=== PATIENT | male | born 1945 | race Caucasian/White ===

== ENCOUNTER 2018-01-14 13:18 | Observation (INO) | payer OTHER, BC ==
--- OUTSIDE RECORDS SUMMARY | 2018-01-14 13:21 | XMS REPORT | Continuity of Care Document ---
:1945 Author Organization Interface Problems Problem Status Onset Date Classification Date Comments Source Reported Medications Medication Details Route Status Patient Ordering Order Source Instructions Provider Date Allergies, Adverse Reactions, Alerts Substance Category Reaction Severity Reaction Status Date Comments Source type Reported Immunizations Immunization Date Given Site Status Last Updated Comments Source Results Order Results Value Reference Date Interpretation Comments Source Name Range Vital Signs Vital Sign Value Date Comments Source Encounters Location Location Encounter Encounter Reason Attending ADM DC Status Source Details Type Number For Provider Date Date Visit Outpatient [id number] TOÑA 11/[address] [facility] Outpatient [id number] TOÑA 11/[address] [facility] Procedures Procedure Code Date Perfomer Comments Source
--- OUTSIDE RECORDS SUMMARY | 2018-01-14 13:21 | XMS REPORT | Clinical Summary ---
:1945 Author Organization [facility] Address [address] [place] [address] Phone Care Team Providers Name Role Phone Unavailable Primary Care Provider Unavailable Allergies Active Allergy Reactions Severity Noted Date Comments Zolpidem 01/23/2016 "makes me loopy" Lisinopril 01/23/2016 Pancreatitis Current Medications Prescription Sig. Disp. Refills Start Date End Date Status glimepiride (AMARYL) Take 4 mg by mouth 2 Active 4 MG tablet (two) times daily. rosuvastatin Take 10 mg by mouth Active (CRESTOR) 10 MG daily. tablet DULoxetine Take 60 mg by mouth Active (CYMBALTA) 60 MG daily. capsule tamsulosin (FLOMAX) Take 0.4 mg by mouth Active 0.4 mg Cp24 24 hr daily. capsule metFORMIN Take 1,000 mg by Active (GLUCOPHAGE) 1000 MG mouth 2 (two) times tablet daily with breakfast and dinner. canagliflozin Take 100 mg by mouth Active (INVOKANA) 100 mg daily. tablet finasteride Take 5 mg by mouth Active (PROSCAR) 5 mg daily. tablet warfarin (COUMADIN) Take 6.5 mg by mouth Active 4 MG tablet daily . SITagliptin Take 100 mg by mouth Active (JANUVIA) 100 MG daily. tablet metoprolol Take 100 mg by mouth Active (TOPROL-XL) 100 MG daily. 24 hr tablet enoxaparin (LOVENOX) Inject subcutaneously Active 150 mg/mL injection every 12 (twelve) hours. metoprolol Take 50 mg by mouth 2 02/01/2016 01/31/2017 (LOPRESSOR) 50 MG (two) times daily. 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 Groin hematoma, sequela 03/20/2016 Wound infection 03/20/2016 Blood loss anemia 01/23/2016 S/P AVR (aortic valve replacement) CPAP (continuous positive airway pressure) dependence Obstructive sleep apnea on CPAP Hypertension Carotid artery disease (HCC) Overview: stent left carotid artery Diabetes mellitus type 2, noninsulin dependent (HCC) Encounters Date Type Specialty Care Team Description 04/28/2017 Hospital Encounter Radiology Collin Lundbergness of breath MD Jose 04/27/2017 Outside Orders Collin Lundberg Shortness of breath MD Jose (Primary Dx) 02/11/2017 Hospital Encounter Cardiology Kvng Goodson Aortic valve stenosis, unspecified etiology 02/11/2017 Office Visit Cardiology Kvng Goodson Aortic valve stenosis, unspecified etiology (Primary Dx);S/P AVR (aortic valve replacement);CPAP (continuous positive airway pressure) dependence;Obstructi ve sleep apnea on CPAP;Essential hypertension;Left-si ded carotid artery disease (HCC);Diabetes mellitus type 2, noninsulin dependent (HCC) 02/11/2017 Outside Orders Central Scheduling Kvng Goodson MD after 01/13/2017 Family History Medical History Relation Name Comments Cancer Brother Heart disease Brother Diabetes Father Heart disease Father Diabetes Mother Heart disease Mother Cancer Sister Heart disease Sister Relation Name Status Comments Brother Father Mother Sister Social History Tobacco Use Types Packs/Day Years Used Date Never Smoker Smokeless Tobacco: Former User Alcohol Use Drinks/Week oz/Week Comments No Sex Assigned at Date Recorded Not on file Last Filed Vital Signs Vital Sign Reading Time Taken Blood Pressure 142/66 02/11/2017 2:40 PM CDT Pulse 82 02/11/2017 2:40 PM CDT Temperature 36.7 C (98 F) 02/11/2017 7:13 AM CDT Respiratory Rate 18 02/11/2017 2:40 PM CDT Oxygen Saturation 95% 02/11/2017 2:40 PM CDT Inhaled Oxygen Concentration - - Weight 132.5 kg (292 lb) 02/11/2017 1:01 PM CDT Height 172.7 cm (5' 8") 02/11/2017 1:01 PM CDT Body Mass Index 44.4 02/11/2017 1:01 PM CDT Plan of Treatment Health Maintenance Due Date Last Done Comments INFLUENZA VACCINE 02/15/[address] Chest without IV Contrast (04/28/2017 10:57 AM) Specimen Performing Laboratory GE RIS Narrative FINAL REPORT CT scan of the chest. CLINICAL HISTORY: Short of breath on exertion. COMPARISON STUDY: January 28, 2016. TECHNIQUE: Contiguous helical slices were acquired through the thorax without the administration of contrast. This exam was performed according to our department dose optimization program which includes automated exposure control, adjustment of the mA and/or kV according to the patient's size and/or use of iterative reconstruction technique. FINDINGS: The mediastinum demonstrates small lymph nodes, extensive atherosclerosis and valvular calcification but no suspicious masses or adenopathy. Multiple bilateral calcified pleural plaques are seen, similar to previous. There is no pleural effusion. The visualized portions of the upper abdomen are unremarkable. The tracheobronchial tree is clear with no endobronchial lesions. The pulmonary parenchyma demonstrates scattered areas of atelectasis or fibrosis. Bone windows demonstrate degenerative changes. Poststernotomy changes are seen. IMPRESSION: 1. Extensive bilateral calcified pleural plaques. 2. Scattered areas of atelectasis or fibrosis. No suspicious pulmonary nodules. 3. Extensive atherosclerosis. Signed: Dennis Agosto MD Report Verified Date/Time:04/28/2017 11:35:10 Reading Location: [address] Radiology Reading Room Procedure Note Interface, External Ris In - 04/28/2017 11:37 AM STEEL DIE ENGRAVER FINAL REPORT CT scan of the chest. CLINICAL HISTORY: Short of breath on exertion. COMPARISON STUDY: January 28, 2016. TECHNIQUE: Contiguous helical slices were acquired through the thorax without the administration of contrast. This exam was performed according to our department dose optimization program which includes automated exposure control, adjustment of the mA and/or kV according to the patient's size and/or use of iterative reconstruction technique. FINDINGS: The mediastinum demonstrates small lymph nodes, extensive atherosclerosis and valvular calcification but no suspicious masses or adenopathy. Multiple bilateral calcified pleural plaques are seen, similar to previous. There is no pleural effusion. The visualized portions of the upper abdomen are unremarkable. The tracheobronchial tree is clear with no endobronchial lesions. The pulmonary parenchyma demonstrates scattered areas of atelectasis or fibrosis. Bone windows demonstrate degenerative changes. Poststernotomy changes are seen. IMPRESSION: 1. Extensive bilateral calcified pleural plaques. 2. Scattered areas of atelectasis or fibrosis. No suspicious pulmonary nodules. 3. Extensive atherosclerosis. Signed: Dennis Agosto MD Report Verified Date/Time: 04/28/2017 11:35:10 Reading Location: [address] Radiology Reading Room CARDIOGRAM REPORT - SCAN (02/12/2017 7:20 AM)Transesophageal echo (2016 12:55 PM) Component Value Ref Range Ejection Fraction Specimen Performing Laboratory [facility] MKCKESSON CPA Narrative Transesophageal Echocardiography Report (DAREK) Demographics Patient Name Meliza LO of Study 02/11/2017 NORMA [id number] Male Visit Number [id number] Room Number op Number Date of Birth1945Referring Physician MD Hamzah Kessler Age71 year(s)Casing Material Weigher Cheng Calderon Interpreting Dolly Evans, Physician Fellow JOAN Devine Procedure Type of Study DAREK procedure:TRANSESOPHAGEAL ECHO Indications:Aortic stenosis. Clinical History CAD,DMII,HTN,MAGED,(RT.) LEG DVT,S/P AVR(1992),STROKE,CHF,ASTHMA,ARTHRITIS Height: 68 inches Weight: 132.45 kg (292 lbs) BSA: 2.4 m^2 BMI: 44.4 kg/m^2 HR: 81 bpm BP: 134/63 mmHg Procedure Informed Consent DAREK procedure notes The patient was counseled and informed consent was obtained. Topical and intravenous anesthesia was administered. The esophagus was intubated without difficulty. The probe was passed and all standard echocardiographic views were obtained. IV saline contrast echo examination was performed with DAREK. The patient tolerated the procedure well. Moderate sedation by performing MD using 5 mg IV versed and 100 mcg IV fentanyl. . Summary A mechanical AVR is seen. It is well-seated. Mildly increased gradients across the AVR but overall normal function with DOI 0.39. Accel time 79ms, peak prosthetic aortic jet velociy < 3m/s, EOA 1.44cm^2. No paravalvular leak or AI is seen. The leaflets appear to move normally. Previous Study No prior studies available for comparison. Signature Findings Rhythm/BPVentricular paced rhythm during the exam. Left Ventricle Normal left ventricular chamber size. Normal wall thickness. Normal overall left ventricular systolic function. No apparent segmental wall motion abnormalities. Left AtriumLA is mildly dilated. LA appendage has simple (wind sock) morphology. No thrombus is seen. Right VentricleThe right ventricular chamber size and systolic function are within normal limits. Right Atrium RA size is normal. Atrial SeptumIV saline contrast injection was negative for a PFO (patent foramen ovale) at rest . Aortic Valve A mechanical AVR is seen. It is well-seated. Mildly increased gradients across the AVR but overall normal function with DOI 0.39. Accel time 79ms, peak prosthetic aortic jet velociy < 3m/s, EOA 1.44cm^2. No paravalvular leak or AI is seen. The leaflets appear to move normally. Mitral Valve Normal MV structure and function. Tricuspid ValveNormal TV structure. Trace TR with PASP 30- 35mmHg. Pulmonic Valve Normal PV structure and function. AortaNormal size of the aortic root and ascending aorta. Grade 2 plaque (extensive intimal thickening) in the descending thoracic aorta . PericardiumAn echo lucent space is noted consistent with prominent pericardial fat pad. IVC/SVC/PA/PV/PleuralBlunted systolic flow in the LUPV. Chambers/Structures Left Atrium LA Volume: 95.54 ml LA Vol. Index: 40 ml/m^2 Left Ventricle LVOT Diameter: 2.17 cm Shunts QS:84.14 ml Doppler/Quantitative Measurements Mitral Valve MV Peak E-Wave: 1.19 m/sMV Peak A-Wave: 0.78 m/s E/A Ratio : 1.52 Mean Velocity: 0.68 m/s Peak Gradient: 5.66 mmHg Mean Gradient: 2.17 mmHgDeceleration Time: 257.5 msec Area (continuity): 3.31 cm^2 MV VTI: 25.42 cm Aortic Valve Peak Velocity: 2.84 m/sMean Velocity: 1.94 m/s Peak Gradient: 32.28 mmHgMean Gradient: 17.52 mmHg AV Area (continuity): 1.44 cm^2 AV VTI: 58.25 cm AV DVI: 0.39 LVOT Peak Velocity: 1.02 m/s Peak Gradient: 4.19 mmHg Mean Velocity: 0.72 m/s Mean Gradient: 2.39 mmHg LVOT Diameter: 2.17 cmLVOT VTI: 22.75 cm LVOT Area: 3.7 cm^2 LVOT SV:84.1 ml LVOT CO: 6.81 l/min LVOT CI: 2.84 l/min/m^2 Tricuspid Valve TR Velocity: 2.85 m/s TR Gradient: 32.52 mmHg Procedure Note Interface, External Ris In - 02/11/2017 8:15 PM CDT Transesophageal Echocardiography Report (DAREK) Demographics Patient Name JONATHAN LO Date of Study 02/11/2017 NORMA Gender Male Visit Number [id number] Race Room Number op Number Date of 1945 Referring Physician MD Hamzah Kessler Age 71 year(s) Casing Material Weigher Cheng Calderon Interpreting Dolly Evans Physician Fellow JOAN Devine Procedure Type of Study DAREK procedure:TRANSESOPHAGEAL ECHO Indications:Aortic stenosis. Clinical History CAD,DMII,HTN,MAGED,(RT.) LEG DVT,S/P AVR(1992),STROKE,CHF,ASTHMA,ARTHRITIS Height: 68 inches Weight: 132.45 kg (292 lbs) BSA: 2.4 m^2 BMI: 44.4 kg/m^2 HR: 81 bpm BP: 134/63 mmHg Procedure Informed Consent DAREK procedure notes The patient was counseled and informed consent was obtained. Topical and intravenous anesthesia was administered. The esophagus was intubated without difficulty. The probe was passed and all standard echocardiographic views were obtained. IV saline contrast echo examination was performed with DAREK. The patient tolerated the procedure well. Moderate sedation by performing MD using 5 mg IV versed and 100 mcg IV fentanyl. . Summary A mechanical AVR is seen. It is well-seated. Mildly increased gradients across the AVR but overall normal function with DOI 0.39. Accel time 79ms, peak prosthetic aortic jet velociy < 3m/s, EOA 1.44cm^2. No paravalvular leak or AI is seen. The leaflets appear to move normally. Previous Study No prior studies available for comparison. Signature Findings Rhythm/BP Ventricular paced rhythm during the exam. Left Ventricle Normal left ventricular chamber size. Normal wall thickness. Normal overall left ventricular systolic function. No apparent segmental wall motion abnormalities. Left Atrium LA is mildly dilated. LA appendage has simple (wind sock) morphology. No thrombus is seen. Right Ventricle The right ventricular chamber size and systolic function are within normal limits. Right Atrium RA size is normal. Atrial Septum IV saline contrast injection was negative for a PFO (patent foramen ovale) at rest . Aortic Valve A mechanical AVR is seen. It is well-seated. Mildly increased gradients across the AVR but overall normal function with DOI 0.39. Accel time 79ms, peak prosthetic aortic jet velociy < 3m/s, EOA 1.44cm^2. No paravalvular leak or AI is seen. The leaflets appear to move normally. Mitral Valve Normal MV structure and function. Tricuspid Valve Normal TV structure. Trace TR with PASP 30-35mmHg. Pulmonic Valve Normal PV structure and function. Aorta Normal size of the aortic root and ascending aorta. Grade 2 plaque (extensive intimal thickening) in the descending thoracic aorta . Pericardium An echo lucent space is noted consistent with prominent pericardial fat pad. IVC/SVC/PA/PV/Pleural Blunted systolic flow in the LUPV. Chambers/Structures Left Atrium LA Volume: 95.54 ml LA Vol. Index: 40 ml/m^2 Left Ventricle LVOT Diameter: 2.17 cm Shunts QS:84.14 ml Doppler/Quantitative Measurements Mitral Valve MV Peak E-Wave: 1.19 m/s MV Peak A-Wave: 0.78 m/s E/A Ratio: 1.52 Mean Velocity: 0.68 m/s Peak Gradient: 5.66 mmHg Mean Gradient: 2.17 mmHg Deceleration Time: 257.5 msec Area (continuity): 3.31 cm^2 MV VTI: 25.42 cm Aortic Valve Peak Velocity: 2.84 m/s Mean Velocity: 1.94 m/s Peak Gradient: 32.28 mmHg Mean Gradient: 17.52 mmHg AV Area (continuity): 1.44 cm^2 AV VTI: 58.25 cm AV DVI: 0.39 LVOT Peak Velocity: 1.02 m/s Peak Gradient: 4.19 mmHg Mean Velocity: 0.72 m/s Mean Gradient: 2.39 mmHg LVOT Diameter: 2.17 cm LVOT VTI: 22.75 cm LVOT Area: 3.7 cm^2 LVOT SV:84.1 ml LVOT CO: 6.81 l/min LVOT CI: 2.84 l/min/m^2 Tricuspid Valve TR Velocity: 2.85 m/s TR Gradient: 32.52 mmHg after 01/13/2017
--- OUTSIDE RECORDS SUMMARY | 2018-01-14 13:21 | XMS REPORT ---
:1945 [facility] Address [address] [place] [address] Dr. Gimenez [address] [place] [id number] Care Team Providers Name Role Phone Unavailable Unavailable Unavailable Problems This patient has no known problems. Allergies, Adverse Reactions, Alerts This patient has no known allergies or adverse reactions. Medications This patient has no known medications. Results Test Description Test Time Test Comments Text Results Atomic Results Result Comments CT, CHEST, WITHOUT CONTRAST 2017-04-28 11:35:[address] scan of the chest. [...] demonstrate degenerative changes. Poststernotomy changes are seen. IMPRESSION:1. Extensive bilateral calcified pleural plaques.2. Scattered areas of atelectasis or fibrosis. No suspicious pulmonary nodules.3. Extensive atherosclerosis. Signed: Herlinda Agosto Verified Date/Time: 04/28/2017 11:35:10 Reading Location: [address] Radiology Reading Room
--- NOTE | 2018-01-14 14:05 | RAD REPORT ---
EXAM DESCRIPTION: RAD - Chest Single View - 01/14/2018 1:59 pm CLINICAL HISTORY: DYSPNEA Chest pain. COMPARISON: Chest Pa And Lat (2 Views) dated 10/15/2017; Abdomen 1 View (KUB) dated 04/01/2017; Chest Pa And Lat (2 Views) dated 02/16/2017; Chest Single View dated 01/22/2016 FINDINGS: Portable technique limits examination quality. Calcified pleural plaques are present bilaterally compatible with previous asbestos exposure. The rox gs are clear of acute infiltrate. The heart is upper limit normal in size with sternotomy wires prese nt. No displaced fractures. IMPRESSION: No acute intrathoracic process suspected. Bilateral calcified pleural plaquing compatible with prior asbestos exposure.
[2018-01-14 14:22] LABS: Absolute Lymphocytes (CBC) 1.5 K/uL (0.7-4.9); Absolute Monocytes 0.7 K/uL (0.1-1.3); Absolute Neutrophil 8.2 K/uL (1.8-8.0); Basophils % 1.5 % (0-1.3); Hematocrit 30.1 % (39.6-49.0); Lymphocytes % 13.8 % (15.3-44.8); MCH 31.3 pg (27.0-35.0); MCV 91.4 fL (80-100); MPV 9.6 fL (7.6-11.3); Monocytes % 6.5 % (3.3-12.3)
[2018-01-14 14:32] LABS: Protime INR 2.34
[2018-01-14 14:43] LABS: Potassium 4.4 mmol/L (3.5-5.1)
--- NOTE | 2018-01-14 15:18 | ER ---
Nurse's Notes [facility] Name: Jonathan Lo Age: 72 yrs Sex: Male : 1945 Arrival Date: 01/14/2018 Time: 13:22 Bed 13 Private MD: Diagnosis: Dyspnea, unspecified;Anemia;Unspecified combined systolic (congestive) and diastolic (congestive) heart failure Presentation: 01/14 13:22 Presenting complaint: Patient states: He had a colonoscopy done a few days ago, and he aj1 lost a lot of blood because they had to cut out a lot of polyps. He called his doctor's office today because he was feeling short of breath on exertion. weakness and fatigue and they advised him to come to the emergency room to have his blood count drawn. Patient appears pale. Transition of care: patient was not received from another setting of care. Onset of symptoms was January 09, 2018. Risk Assessment: Do you want to hurt yourself or someone else? Patient reports no desire to harm self or others. Initial Sepsis Screen: Does the patient meet any 2 criteria? HR > 90 bpm. No. Patient's initial sepsis screen is negative. Does the patient have a suspected source of infection? No. Patient's initial sepsis screen is negative. Care prior to arrival: None. 13:22 Method Of Arrival: Wheelchair aj1 13:22 Acuity: BOYD 2 aj1 Triage Assessment: 13:29 General: Appears in no apparent distress. uncomfortable, Behavior is calm, cooperative, aj1 appropriate for age. Pain: Denies pain. Neuro: Level of Consciousness is awake, alert, obeys commands. Cardiovascular: Reports chest pain with exertion Patient's skin is warm and dry. Respiratory: Reports shortness of breath on exertion Onset: The symptoms/episode began/occurred suddenly, the patient reports symptoms have resolved. Historical: - Allergies: 13:29 Aspirin; aj1 13:29 Lisinopril; aj1 13:29 zolpidem tartrate; aj1 - Home Meds: 13:29 tamsulosin 0.4 mg Oral cp24 1 cap once daily [Active]; Januvia 100 mg oral tab 1 tab aj1 once daily [Active]; Toprol XL 100 mg Oral Tb24 1 tab once daily [Active]; Crestor 10 mg Oral tab 1 tab once daily [Active]; Cymbalta 60 mg oral cpDR 1 cap once daily [Active]; Glucophage 1,000 mg Oral tab 1 tab 2 times per day [Active]; glimepiride 4 mg Oral tab 1 tab twice a day [Active]; finasteride 5 mg Oral tab 1 tab once daily [Active]; Coumadin 6.5 mg Oral tab 1 tab once daily [Active]; - PMHx: 13:29 CAD; Diabetes - NIDDM; High Cholesterol; Hypertension; neuropathy; aj1 - Immunization history:: Flu vaccine is not up to date. - Social history:: Smoking status: Patient/guardian denies using tobacco. - Ebola Screening: : Patient denies travel to an Ebola-affected area in the 21 days before illness onset. - Family history:: not pertinent. - Hospitalizations: : No recent hospitalization is reported. Screenin:57 Abuse screen: Denies threats or abuse. Nutritional screening: No deficits noted. tw2 Tuberculosis screening: No symptoms or risk factors identified. Fall Risk None identified. Assessment: 13:35 General: Appears in no apparent distress. obese, Behavior is calm, cooperative, tw2 appropriate for age. Pain: Denies pain. Neuro: Level of Consciousness is awake, alert, obeys commands, Oriented to person, place, time, situation. Cardiovascular: Heart tones S1 S2 Capillary refill < 3 seconds Rhythm is sinus rhythm. Respiratory: Reports shortness of breath at rest on exertion Airway is patent Respiratory effort is even, unlabored, Respiratory pattern is regular, symmetrical, Breath sounds are clear bilaterally. GI: Abdomen is round distended, obese, Bowel sounds present X 4 quads. : No signs and/or symptoms were reported regarding the genitourinary system. EENT: No signs and/or symptoms were reported regarding the EENT system. EENT: No signs and/or symptoms were reported regarding the EENT system. Derm: No signs and/or symptoms reported regarding the dermatologic system. Skin is pale. Musculoskeletal: Range of motion: intact in all extremities. 14:35 Reassessment: Patient appears in no apparent distress at this time. No changes from tw2 previously documented assessment. Patient and/or family updated on plan of care and expected duration. Pain level reassessed. Patient is alert, oriented x 3, equal unlabored respirations, skin warm/dry/pink. 15:35 Reassessment: Patient appears in no apparent distress at this time. No changes from tw2 previously documented assessment. Patient and/or family updated on plan of care and expected duration. Pain level reassessed. Patient is alert, oriented x 3, equal unlabored respirations, skin warm/dry/pink. 16:07 Reassessment: Patient appears in no apparent distress at this time. No changes from tw2 previously documented assessment. Patient and/or family updated on plan of care and expected duration. Pain level reassessed. Patient is alert, oriented x 3, equal unlabored respirations, skin warm/dry/pink. Vital Signs: 13:29 BP 166 / 71; Pulse 115; Resp 24; Temp 97.2(TE); Pulse Ox 95% on R/A; Weight 127.01 kg aj1 (R); Height 5 ft. 8 in. (172.72 cm) (R); Pain 0/10; 14:43 BP 123 / 57; Pulse 94; Resp 19; Pulse Ox 96% on 2 lpm NC; tw2 15:30 BP 122 / 58; Pulse 91; Resp 17; Pulse Ox 95% on R/A; tw2 16:12 BP 125 / 70; Pulse 91; Resp 18; Pulse Ox 98% on 2 lpm NC; Pain 0/10; em 13:29 Body Mass Index 42.57 (127.01 kg, 172.72 cm) aj1 14:43 pt sat 91%RA, pt placed on 2 L will continue to monitor tw2 ED Course: 13:22 Patient arrived in ED. aj1 13:25 Triage completed. aj1 13:29 Arm band placed on Patient placed in an exam room. aj1 13:31 Zachery Joseph MD is Attending Physician. rn 13:33 Regina Tomlin RN is Primary Nurse. tw2 13:55 Missed attempt(s): 22 gauge in right antecubital area. Bleeding controlled, band aid tw2 applied, catheter tip intact. Missed attempt(s): 22 gauge in left antecubital area. Bleeding controlled, band aid applied, catheter tip intact. 13:56 Bed in low position. Call light in reach. monitor worker on. Pulse ox on. NIBP on. tw2 13:58 X-ray completed. Portable x-ray completed in exam room. Patient tolerated procedure ka well. 13:58 EKG done, by technical translator. reviewed by Zachery Joseph MD. 3 13:59 XRAY Chest (1 view) In Process Unspecified. EDMS 14:10 Initial lab(s) drawn, by me, sent to lab. Inserted saline lock: 20 gauge in right in vd2 left hand, using aseptic technique. Blood collected. 15:17 Darek Rosales MD is Hospitalizing Provider. rn 16:10 Report given to JOSE A Tipton. tw2 16:20 No provider procedures requiring assistance completed. Patient admitted, IV remains in em place. Administered Medications: 15:25 Drug: Lasix 20 mg Route: IVP; Site: left hand; tw2 16:03 Follow up: Response: No adverse reaction tw2 Outcome: 15:18 Decision to Hospitalize by Provider. rn 16:42 Admitted to Tele accompanied by nurse, via wheelchair, room 221, with oxygen, with em chart, Report called to VALENTIN Becker 16:42 Condition: good 16:42 Instructed on the need for admit, Demonstrated understanding of instructions. 16:43 Patient left the ED. em Signatures: Dispatcher [employer] EDLiliana Francisco, RN RN aj1 Saeed Shields [employer] em Zacehry Joseph MD MD rn Dahse, Anasatcia 2 Connie Hernández Tara, RN RN tw2 Shavon Tamez 3
--- NOTE | 2018-01-14 15:18 | EDPHYS ---
Physician Documentation [facility] Name: Jonathan Lo Age: 72 yrs Sex: Male : 1945 Arrival Date: 01/14/2018 Time: 13:22 Bed 13 Private MD: ED Physician Zachery Joseph HPI: 01/14 14:27 This 72 yrs old Male presents to ER via Wheelchair with complaints of rn Shortness Of Breath. 14:27 The patient has shortness of breath at rest, with light activity. Onset: The rn symptoms/episode began/occurred 1 week(s) ago. Duration: The symptoms are intermittent. The patient's shortness of breath is aggravated by exertion, light activity, talking, walking. Severity of symptoms: At their worst the symptoms were moderate in the emergency department the symptoms are unchanged. The patient has not experienced similar symptoms in the past. Reports had colonoscopy a little more than a week ago, had several polyps removed, was taking lovenox and now coumadin, bled bright red blood for 3 days, no longer bleeding for last 3 days, + sob and dizzy with exertion, feels weak. No fever/cough/chest pain.No abd pain.. Historical: - Allergies: 13:29 Aspirin; aj1 13:29 Lisinopril; aj1 13:29 zolpidem tartrate; aj1 - Home Meds: 13:29 tamsulosin 0.4 mg Oral cp24 1 cap once daily [Active]; Januvia 100 mg oral tab 1 tab aj1 once daily [Active]; Toprol XL 100 mg Oral Tb24 1 tab once daily [Active]; Crestor 10 mg Oral tab 1 tab once daily [Active]; Cymbalta 60 mg oral cpDR 1 cap once daily [Active]; Glucophage 1,000 mg Oral tab 1 tab 2 times per day [Active]; glimepiride 4 mg Oral tab 1 tab twice a day [Active]; finasteride 5 mg Oral tab 1 tab once daily [Active]; Coumadin 6.5 mg Oral tab 1 tab once daily [Active]; - PMHx: 13:29 CAD; Diabetes - NIDDM; High Cholesterol; Hypertension; neuropathy; aj1 - Immunization history:: Flu vaccine is not up to date. - Social history:: Smoking status: Patient/guardian denies using tobacco. - Ebola Screening: : Patient denies travel to an Ebola-affected area in the 21 days before illness onset. - Family history:: not pertinent. - Hospitalizations: : No recent hospitalization is reported. ROS: 14:27 Constitutional: Negative for fever, chills, and weight loss, Eyes: Negative for injury, rn pain, redness, and discharge, Neck: Negative for injury, pain, and swelling, Cardiovascular: Negative for chest pain, palpitations, and edema, Respiratory: Negative for cough, wheezing, and pleuritic chest pain, Abdomen/GI: Negative for abdominal pain, nausea, vomiting, diarrhea, and constipation, MS/Extremity: Negative for injury and deformity, Skin: Negative for injury, rash, and discoloration, Neuro: Negative for headache, numbness, tingling, and seizure. Exam: 14:27 Constitutional: This is a well developed, well nourished patient who is awake, alert, rn mild tachypnea Head/Face: Normocephalic, atraumatic. Eyes: slightly pale conjunctivae Cardiovascular: tachycardic, regular, no murmur Respiratory: + mild tachypnea, no retractions, speaks 3-4 word sentences Abdomen/GI: Soft, non-tender, with normal bowel sounds. No distension or tympany. No guarding or rebound. No evidence of tenderness throughout. MS/ Extremity: Pulses equal, no cyanosis. Neurovascular intact. Full, normal range of motion. Equal circumference. 1+ pedal edema Neuro: Awake and alert, GCS 15, oriented to person, place, time, and situation. Cranial nerves II-XII grossly intact. Motor strength 5/5 in all extremities. Sensory grossly intact. Cerebellar exam normal. Normal gait. Vital Signs: 13:29 BP 166 / 71; Pulse 115; Resp 24; Temp 97.2(TE); Pulse Ox 95% on R/A; Weight 127.01 kg aj1 (R); Height 5 ft. 8 in. (172.72 cm) (R); Pain 0/10; 14:43 BP 123 / 57; Pulse 94; Resp 19; Pulse Ox 96% on 2 lpm NC; tw2 15:30 BP 122 / 58; Pulse 91; Resp 17; Pulse Ox 95% on R/A; tw2 16:12 BP 125 / 70; Pulse 91; Resp 18; Pulse Ox 98% on 2 lpm NC; Pain 0/10; em 13:29 Body Mass Index 42.57 (127.01 kg, 172.72 cm) aj1 14:43 pt sat 91%RA, pt placed on 2 L will continue to monitor tw2 MDM: 13:31 Patient medically screened. rn 15:16 Differential diagnosis: Anemia CHF exacerbation, Myocardial Infarction pneumonia, rn pulmonary edema. Data reviewed: vital signs, nurses notes, lab test result(s), EKG, radiologic studies, plain films, and as a result, I will admit patient. Counseling: I had a detailed discussion with the patient and/or guardian regarding: the historical points, exam findings, and any diagnostic results supporting the discharge/admit diagnosis, lab results, radiology results, the need for further work-up and treatment in the hospital. Response to treatment: the patient's symptoms have mildly improved after treatment, and as a result, I will admit patient. Admission orders: after a detailed discussion of the patient's condition and case, the admit orders are written by me. ED course: Spoke with Tres Rosales, will admit for CHF, elevated troponin, and monitoring of anemia, no longer bleeding, will place consult for Dr. Bernardo. . 15:23 ED course: Dr. Bernardo paged, got his office, who took message and would relay rn information, notified \T\ 1523. 01/14 13:40 Order name: CBC with Diff; Complete Time: 15:02 rn 01/14 13:40 Order name: Basic Metabolic Panel; Complete Time: 15:02 rn 01/14 13:40 Order name: Protime (+inr); Complete Time: 15:02 rn 01/14 13:40 Order name: Ptt, Activated; Complete Time: 15:02 rn 01/14 13:40 Order name: NT PRO-BNP; Complete Time: 15:02 rn 01/14 13:40 Order name: Troponin (emerg Dept Use Only); Complete Time: 15:02 rn 01/14 13:40 Order name: EKG; Complete Time: 13:41 rn 01/14 13:40 Order name: EKG - Nurse/Tech; Complete Time: 13:55 rn 01/14 13:40 Order name: Type And Screen; Complete Time: 15:15 rn 01/14 13:40 Order name: XRAY Chest (1 view); Complete Time: 14:16 rn 01/14 14:54 Order name: ABO/RH no charge; Complete Time: 15:02 EDMS Administered Medications: 15:25 Drug: Lasix 20 mg Route: IVP; Site: left hand; tw2 16:03 Follow up: Response: No adverse reaction tw2 Disposition: 01/14/18 15:18 Hospitalization ordered by Darek Rosales for Inpatient Admission. Preliminary diagnosis are Dyspnea, unspecified, Anemia, Unspecified combined systolic (congestive) and diastolic (congestive) heart failure. - Bed requested for Telemetry/MedSurg (Inpatient). - Status is Inpatient Admission. em - Condition is Stable. - Problem is an ongoing problem. - Symptoms have improved. UTI on Admission? No Signatures: Dispatcher [employer] EDMS Liliana South RN VALENTIN ajNamita Dominguez RN VALENTIN kl Saeed Shields, TOW MOTOR MECHANIC TOW MOTOR MECHANIC Zachery Sahni MD MD rn Wise, Tara, RN RN tw2 Tamara Kerns Corrections: (The following items were deleted from the chart) 16:00 15:18 Hospitalization Ordered by A Bobby ALMODOVAR for Inpatient Admission. Preliminary eb diagnosis is Dyspnea, unspecified; Anemia; Unspecified combined systolic (congestive) and diastolic (congestive) heart failure. Bed requested for Telemetry/MedSurg (Inpatient). Status is Inpatient Admission. Condition is Stable. Problem is an ongoing problem. Symptoms have improved. UTI on Admission? No. rn 16:07 16:00 01/14/2018 15:18 Hospitalization Ordered by A Bobby ALMODOVAR for Inpatient Admission. kl Preliminary diagnosis is Dyspnea, unspecified; Anemia; Unspecified combined systolic (congestive) and diastolic (congestive) heart failure. Bed requested for Telemetry/MedSurg (Inpatient). Status is Inpatient Admission. Condition is Stable. Problem is an ongoing problem. Symptoms have improved. UTI on Admission? No. eb 16:43 16:07 01/14/2018 15:18 Hospitalization Ordered by A Bobby ALMODOVAR for Inpatient Admission. em Preliminary diagnosis is Dyspnea, unspecified; Anemia; Unspecified combined systolic (congestive) and diastolic (congestive) heart failure. Bed requested for Telemetry/MedSurg (Inpatient). Status is Inpatient Admission. Condition is Stable. Problem is an ongoing problem. Symptoms have improved. UTI on Admission? No. kl
[2018-01-14] MEDS ORDERED: FUROSEMIDE 20 MG/ 2ML VIAL ONE (15:27)
--- NOTE | 2018-01-14 16:26 | EKG ---
Test Date: 2018-01-14 Test Time: 13:54:51 Hogshead Inspector: JOSEPH MEASUREMENT RESULTS: Intervals: Rate: 105 NM: 192 QRSD: 114 QT: 346 QTc: 457 [place]: P: 88 NM: 192 QRS: 11 T: 115 INTERPRETIVE STATEMENTS: Sinus tachycardia Incomplete left bundle branch block T wave abnormality, consider lateral ischemia Abnormal ECG Compared to ECG 01/22/2016 06:10:08 Left bundle-branch block now present T-wave abnormality now present Ventricular premature complex(es) no longer present Myocardial infarct finding no longer present ST (T wave) deviation no longer present Possible ischemia still present Electronically Signed On 01-14-18 16:25:50 CDT by Charlie Bernardo
[2018-01-14] MEDS ORDERED: ONDANSETRON 4 MG/2 ML VIAL IV PRN (16:30)
[2018-01-14] MEDS ORDERED: ALBUTEROL 2.5 MG/3 ML NEB SOL NEB PRN (16:30)
[2018-01-14] MEDS ORDERED: IPRATROPIUM BROM 0.5MG/2.5ML NEB PRN (16:30)
[2018-01-14] MEDS ORDERED: ACETAMINOPHEN 500 MG TAB PO PRN (16:30)
[2018-01-14] MEDS ORDERED: FUROSEMIDE 20 MG/ 2ML VIAL IV SCH (17:00)
[2018-01-14 17:07] VITALS: BMI 42.5
[2018-01-14] MEDS: WARFARIN SODIUM 7.5 MG TAB PO ONE ×2 (21:55→22:35)
[2018-01-15 05:55] LABS: Absolute Lymphocytes (CBC) 1.8 K/uL (0.7-4.9); Absolute Monocytes 0.9 K/uL (0.1-1.3); Basophils % 1.4 % (0-1.3); Eosinophils % 5.9 % (0-4.4); Hematocrit 27.2 % (39.6-49.0); Lymphocytes % 21.7 % (15.3-44.8); MCH 30.3 pg (27.0-35.0); MPV 9.6 fL (7.6-11.3); Monocytes % 11.2 % (3.3-12.3); RBC Red Blood Cell Count 2.99 M/uL (4.33-5.43)
[2018-01-15 06:00] LABS: Albumin 3.3 g/dL (3.4-5.0); Bilirubin Total 0.4 mg/dL (0.2-1.0); Potassium 4.2 mmol/L (3.5-5.1); Protein, Total 6.7 g/dL (6.4-8.2)
[2018-01-15 06:01] LABS: Thyroid Stimulating Hormone 3.8 uIU/mL (0.360-3.740)
--- NOTE | 2018-01-15 07:33 | HP ---
Date of Admission: 01/14/2018 Chief Complaint: Shortness of breath and chest pain. History Of Present Illness: A 72-year-old male patient who had colonoscopy done by Dr. Aguirre a week before last, and he had some rectal bleeding after colonoscopy which has stopped now, and has not had any bleeding in almost a week or so. He is back on his anticoagulant medication, which is wa rfarin which is being managed by director inpatient headache program, Dr. Bernardo. Last 2-3 days, he is having shortness of breath with any minimum day-to-day activity including just getting out of bed and going to the bathr oom he gets short of breath, walking across the room get short of breath, and he has a pulse oximeter at home. He checks his oxygen saturation and it drops down into range of 70-75 when he gets short o f breath and then once he sits down and rests, it gets better, his shortness of breath goes away. De nies any fever, chills, nausea, vomiting. No expectoration. No hemoptysis. No bleeding per rectum in last few days. The patient also has noted that in last 2-3 days along with shortness of breath, anna atkinson gets chest tightness all across the upper chest and some pain in his shoulders and arms. He called his director inpatient headache program's office today with these complaints and he was advised to come to emergency room. After he was evaluated in the ER, he was admitted to the hospital and I saw him this evening. His w reyes was present with him at bedside. Allergies: ALLERGIC TO LISINOPRIL AND ZOLPIDEM. Medications: He takes Crestor 10 mg daily; Cymbalta 60 mg daily; finasteride 5 mg daily; furosemide 40 mg every day as needed for leg swelling; glimepiride 4 mg p.o. 2 times a day; Januvia 100 mg p.o. daily with breakfast; metformin 1000 mg p.o. 2 times a day; metoprolol succinate 100 mg p.o. daily; m ultivitamin daily; Rapaflo 8 mg p.o. daily; warfarin, which he takes it every day, but dose being man aged by Dr. Bernardo. Review of Systems: Cardiovascular: As mentioned above. GI: As mentioned above. All other systems reviewed and negative. Family History: Significant for bladder cancer, stomach cancer, diabetes mellitus, stroke. Social History: Prior history of smoking, not at present time. Use of alcohol, negative. Past Surgical History: Carotid artery endarterectomy and then carotid artery stent in 2004, aortic v alve replacement in 1992 due to aortic wall stenosis, knee replacement, carpal tunnel surgery, left s houlder tendon repair, arthroscopic knee surgery. Past Medical History: Mixed hyperlipidemia, hypertension, sleep apnea, nonalcoholic fatty liver dise ase, type 2 diabetes mellitus, chronic anticoagulation therapy, chronic diastolic congestive heart fa ilure, prosthetic heart valve, carotid artery stenosis. Physical Examination: Vital Signs: This evening when I saw him, his temperature 97.3, pulse 96, respiratory rate 20, blood pressure 139/66, oxygen saturation 95%. Height 5 feet 8 inches, weight 280 pounds. General: Awake, alert, oriented, not in distress. HEENT: Head atraumatic, normocephalic. Conjunctivae nonerythematous. Sclerae white. Mouth, no thr ush or edema noted. Ears/Nose, no mass, lesion, discharge noted. Neck: Supple. No JVD, lymph nodes, bruit, thyromegaly noted. Lungs: Bilateral good equal air entry. Clear to auscultation. No rhonchi. Presence of some fine r ales in lower lung youssef. Heart: Normal heart sounds, no murmur or gallop. Abdomen: Soft, bowel sounds normal. No guarding, rigidity, tenderness, mass, hepatosplenomegaly, di stention, or bruit noted. Extremities: Trace leg edema. No calf tenderness. Skin: No rash, ulcer, cellulitis. Lymphatics: No lymph node enlargement in neck, supraclavicular, infraclavicular region. Neuro: No focal neurological deficit. Chest: Unremarkable. External Genitalia: Deferred. Rectal: Deferred. Laboratory Data: White count 10.9, hemoglobin 10.3, platelets 327. INR 2.34. Sodium 141, potassium 4.4, chloride 104, bicarb 26, BUN 19, creatinine 1.10, glucose 178. Troponin 0.07 on the first set, second set 0.17. ProBNP 351. Chest x-ray, no acute intrathoracic process noted. 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 Electrocardiogram, sinus tachycardia, i ncomplete left bundle-branch block. Impression: 1.Congestive heart failure, chronic, diastolic, with acute exacerbation. 2.Chest pain. 3.Chronic anticoagulation therapy. 4.Prosthetic aortic valve. 5.Hypertension. 6.Type 2 diabetes mellitus. 7.Mixed hyperlipidemia. 8.Coronary artery disease. 9.Carotid artery stenosis. 10.Nonalcoholic fatty liver disease. 11.Anemia. Plan: We will admit the patient to hospital for further evaluation and management of this problem. The patient is appropriate for inpatient and is expected to spend 2 midnights in hospital. Home medi cations will be continued per order. Consult Cardiology. Get echo with Doppler. We will go ahead a nd get a CT scan of the chest per PE protocol done tomorrow morning. Continue anticoagulation therap y that he takes, and we will go ahead and give IV Lasix. Monitor electrolytes and blood count. Card iac enzymes will be done tomorrow morning. Details and plan of treatment discussed with him. ELIAS/MARGARITA Voice ID: [id number]
[2018-01-15] MEDS ORDERED: SITAGLIPTIN PHOS 100 MG TAB PO SCH (09:00)
[2018-01-15] MEDS ORDERED: ROSUVASTATIN 10 MG TAB PO SCH (09:00)
[2018-01-15] MEDS ORDERED: DULOXETINE 20 MG CAP PO SCH (09:00)
[2018-01-15] MEDS ORDERED: DULOXETINE 30 MG CAP PO SCH (09:00)
[2018-01-15] MEDS ORDERED: NEOMYCIN PO SCH (09:00)
[2018-01-15] MEDS ORDERED: TAMSULOSIN 0.4 MG SR CAP PO SCH (09:00)
[2018-01-15] MEDS ORDERED: FUROSEMIDE 40 MG/4 ML VIAL IV SCH (09:00)
[2018-01-15] MEDS ORDERED: FUROSEMIDE 20 MG/ 2ML VIAL IV SCH (09:00)
[2018-01-15] MEDS ORDERED: [UNRECOGNIZED DRUG - OTHER] PO SCH (09:00)
[2018-01-15] MEDS ORDERED: METOPROLOL XL 50 MG TAB PO SCH (09:00)
[2018-01-15] MEDS ORDERED: POLYMYXIN B SULF PO SCH (09:00)
--- NOTE | 2018-01-15 10:02 | RAD REPORT ---
EXAM DESCRIPTION: CT - Chest For Pe Angio - 01/15/2018 9:36 am CLINICAL HISTORY: Chest pain. dyspnea, rule out PE COMPARISON: THORAX W CONTRAST dated 03/09/2013; Chest Single View dated 01/14/2018 TECHNIQUE: CT angiogram of the pulmonary arteries was performed with MIP. All CT scans are performed using dose optimization technique as appropriate and may include automated exposure control or mA/KV adjustment according to patient size. FINDINGS: No evidence of pulmonary thromboembolism. No acute aortic finding demonstrated. The lungs are mildly emphysematous but clear of acute infiltrate. Calcified pleural plaquing bilaterally compatible with prior asbestos exposure. Several mildly promin ent lymph nodes are seen in the mediastinum and hilar regions, not of pathologic size or appearance. No concerning bony finding. IMPRESSION: No evidence of pulmonary thromboembolism. 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 No acute pulmonary abnormality.
[2018-01-15 13:00] VITALS: BP 142/65; TEMP 97
[2018-01-15 13:31] VITALS: O2SAT 93
--- NOTE | 2018-01-15 16:45 | P.SSS ---
Patient History Date of Service: 01/15/18 Primary Care Provider: Dr Rosales Reason for admission: Chest Pain and SOB History of Present Illness: A 72-year-old male patient who had colonoscopy done by Dr. Aguirre a week before last, and he had some rectal bleeding after colonoscopy which has stopped now, and has not had any bleeding in almost a week or so. He is back on his anticoagulant medication, which is warfarin which is being managed by promotional marketing agent, Dr. Bernardo. Last 2-3 days, he is having shortness of breath with any minimum day-to-day activity including just getting out of bed and going to the bathroom he gets short of breath, walking across the room get short of breath, and he has a pulse oximeter at home. He checks his oxygen saturation and it drops down into range of 70-75 when he gets short of breath and then once he sits down and rests, it gets better, his shortness of breath goes away. Denies any fever, chills, nausea, vomiting. No expectoration. No hemoptysis. No bleeding per rectum in last few days. The patient also has noted that in last 2-3 days along with shortness of breath, he gets chest tightness all across the upper chest and some pain in his shoulders and arms. He called his promotional marketing agent's office today with these complaints and he was advised to come to emergency room. After he was evaluated in the ER, he was admitted to the hospital and I saw him this evening. His was present with him at bedside. Allergies aspirin Allergy (Verified 01/22/16 15:59) Itching/Hives/Rash lisinopril Allergy (Verified 01/22/16 15:59) Itching/Hives/Rash zolpidem tartrate [From Ambien] Allergy (Verified 01/22/16 15:59) Itching/Hives/Rash Home Medications: Duloxetine [Cymbalta *] 60 mg PO DAILY 01/14/18 Finasteride [Proscar*] 5 mg PO DAILY AT SUPPER 01/14/18 Glimepiride [Amaryl] 4 mg PO DAILY 01/14/18 Glimepiride [Amaryl] 4 mg PO DAILY AT SUPPER 01/14/18 Metformin HCl [Glucophage*] 1,000 mg PO DAILY AT SUPPER 01/14/18 Metformin HCl [Glucophage*] 1,000 mg PO DAILY WITH BREAKFAST 01/14/18 Metoprolol Succinate [Toprol Xl*] 100 mg PO DAILY 01/14/18 Neomycin/Polymyxin B Sulf/Hc [Tnppaogu-Qxansbwse-Jr Ear Susp] 4 drops PO QID Rosuvastatin [Crestor*] 1 tab PO DAILY 01/14/18 Sitagliptin Phosphate [Januvia*] 100 mg PO DAILY 01/14/18 Tamsulosin HCl 0.4 mg PO DAILY 01/14/18 Warfarin Sodium [Coumadin*] 6.5 mg PO DAILY 5 PM 01/14/18 Ferrous Sulfate 325 mg PO DAILY #30 tablet 01/15/18 - Past Medical/Surgical History Has patient received pneumonia vaccine in the past: Yes Diabetic: Yes -: CVA 2003 -: ASBESTOSIS -: KIDNEY STONES WITH LITHOTRIPSY X2 .2014 -: HTN -: DM NIDDM -: BPH -: PANCREATITIS 2011 -: high cholesterol -: LEFT KNEE REPLACEMENT 2010 -: LEFT SHOULDER TORN TENDON REPAIR -: LEFT SIDE CAROTID ENDOCARDECTOMY W/STENT 2010 -: AORTIC VALVE REPLACEMENT 1992 - Family History Father -: Heart disease, Hypertension, Cancer Notes: MULTIPLE MYELOMA MOTHERR -: Heart disease, Hypertension, Diabetes Notes: CHF - Social History Smoking Status: Former smoker Alcohol use: Yes CD- Drugs: No Caffeine use: Yes Place of Residence: Home Review of Systems 10-point ROS is otherwise unremarkable Physical Examination - Vital Signs Temperature: 97.0 F Blood Pressure: 142/65 Pulse: 93 Respirations: 16 Pulse Ox (%): 92 - Physical Exam General: Alert, In no apparent distress HEENT: Atraumatic, PERRLA, Mucous membr. moist/pink, EOMI, Sclerae nonicteric Neck: Supple, 2+ carotid pulse no bruit, No LAD, Without JVD or thyroid abnormality Respiratory: Clear to auscultation bilaterally, Normal air movement Cardiovascular: Regular rate/rhythm, Normal S1 S2 Gastrointestinal: Normal bowel sounds, No tenderness Musculoskeletal: No tenderness Integumentary: No rashes Neurological: Normal gait, Normal speech, Normal strength at 5/5 x4 extr, Normal tone, Normal affect Lymphatics: No axilla or inguinal lymphadenopathy - Diagnosis (Problem(s)) (1) SOB (shortness of breath) Status: Resolved (2) Anemia Onset Date: 01/15/18 Status: Acute Qualifiers: Anemia type: iron deficiency Iron deficiency anemia type: chronic blood loss Qualified Code(s): D50.0 - Iron deficiency anemia secondary to blood loss (chronic) (3) Aortic valve prosthesis present Onset Date: 01/15/18 Status: Chronic (4) CAD (coronary artery disease) Onset Date: 01/15/18 Status: Chronic Qualifiers: Coronary Disease-Associated Artery/Lesion type: [place] artery [place] vs. transplanted heart: [place] heart Associated angina: without angina Qualified Code(s): I25.10 - Atherosclerotic heart disease of [place] coronary artery without angina pectoris (5) CHF (congestive heart failure) Onset Date: 01/15/18 Status: Chronic Qualifiers: Heart failure type: unspecified Heart failure chronicity: chronic Qualified Code(s): I50.9 - Heart failure, unspecified (6) Chest pain Onset Date: 01/15/18 Status: Chronic Qualifiers: Chest pain type: other chest pain Qualified Code(s): R07.89 - Other chest pain; R07.8 - Other chest pain (7) Chronic anticoagulation Onset Date: 01/15/18 Status: Chronic (8) Diabetes Onset Date: 01/15/18 Status: Chronic Qualifiers: Diabetes mellitus type: type 2 Diabetes mellitus eligibility consultant insulin use: with intermediate use Diabetes mellitus complication status: without complication Qualified Code(s): E11.9 - Type 2 diabetes mellitus without complications; Z79.4 - data analytics chief scientist (current) use of insulin (9) HTN (hypertension) Onset Date: 01/15/18 Status: Chronic Qualifiers: Hypertension type: essential hypertension Qualified Code(s): I10 - Essential (primary) hypertension (10) Hyperlipidemia Status: Chronic Qualifiers: Hyperlipidemia type: mixed hyperlipidemia Qualified Code(s): E78.2 - Mixed hyperlipidemia Treatment Summary: Overall during the hospital stay patient remained stable Patient was initially admitted to the hospital after having shortness of breath , chest pain and generalized weakness after he had his colonoscopy. Patient was found to be anemic and had profuse bleeding after his colonoscopy due to polypectomy. Bleeding did subside and patient was restarted on his anticoagulant is aortic valve replacement. Patient then was admitted to the hospital for ACS rule out. Cardiology was consulted. Recommendations were appreciated. Her with cardiology patient symptom is most likely secondary to his anemia secondary to blood loss after colonoscopy. Per cardiology recommended the patient have iron supplements and be discharged home under stable condition and asked to follow up with cardiology in about 1-2 weeks post discharge. Patient's chest pain shortness of breath did resolve while here in the hospital. Patient's symptomatology Wound is most likely secondary to chronic blood loss anemia secondary to polypectomy. Patient was asked to take iron 325 b.i.d. until he sees his primary care provider. The patient's generalized weakness also got better while here in the hospital. Patient demonstrated understanding of the disease process and the reason for his acute symptoms and thus was discharged home under stable condition after he had marked improvement was able to ambulate and tolerate his diet well. Patient was educated extensively on diet that is high in iron and lifestyle modification as well. - Disposition Disposition: ROUTINE DISCHARGE Condition: GOOD Diet: Regular Activity: Ad jeff
[2018-01-15] MEDS ORDERED: WARFARIN SODIUM 2.5 MG TAB PO SCH (17:00)
[2018-01-15] MEDS ORDERED: WARFARIN SODIUM 4 MG TAB PO SCH (17:00)
[2018-01-15] MEDS ORDERED: WARFARIN SODIUM 6 MG TAB PO SCH (17:00)
[2018-01-15] MEDS ORDERED: FINASTERIDE 5 MG TAB PO SCH (17:00)
--- NOTE | 2018-01-16 05:53 | CON ---
Date of Consultation: 01/15/2018 History Of Present Illness: Mr. Lo is a 72, very well known to me from office visits and [facility] admissions. He has an extensive past medical history of coronary artery disease, status post CABG. He has a history of aortic valve replacement that is mechanical. He has hypertension, diabetes, ob esity, and dyslipidemia. He recently had a colonoscopy and had, I believe, 9 polyps removed and had significant bleeding. Mr. Lo had been bridged with Lovenox while holding the Coumadin for his co lonoscopy. His last hemoglobin is 9. But since his blood loss, he felt dyspnea on exertion and some chest pain, some nausea, diaphoresis, and shortness of breath, came in and was found to have mild CH F exacerbation on chest x-ray, elevated troponin. By the time I saw him, he had his symptoms resolve d after IV Lasix. The patient is not anemic enough for transfusions. Past Medical History: As stated above. Allergies: NONE. Review of Systems: Negative. Social History: Negative for tobacco, alcohol, or drugs. Family History: Positive for heart disease. Physical Examination: Vital Signs: When I saw him, his vital signs were stable, he was afebrile. HEENT: Negative. Neck: Supple without any bruit, lymphadenopathy, JVD, or thyromegaly. Chest: Revealed rales bilaterally. Cardiac: Revealed a regular rhythm and rate with a crisp aortic valve sound and no aortic regurgitat ion. No gallops. No rubs. Abdomen: Obese but benign. Extremities: Revealed 1+ edema. Diagnostic Data: Consistent with anemia, elevated CPK, troponin, and BNP. Impression And Plan: 1.Acute exacerbation of chronic diastolic congestive heart failure secondary to anemia. 2.Coronary artery disease, stable. 3.Hypertension. 4.Diabetes. 5.Dyslipidemia. 6.Cerebrovascular disease. 7.Recent gastrointestinal bleed from colonoscopy and polyp removal while he is on anticoagulation. Mr. Lo is now back on his Coumadin. I agree with his present regimen. Another echocardiogram is pending. I would continue diuresis. If his symptoms do not improve, I will still consider the ledezma sfusion. He does not need another cardiac workup other than the echo at this point. If he does go h ome, I will see him in the office in the near future. He will need his CBC followed. PT and INR are pending in the near future. DAPHNEY/MARGARITA Voice ID: [id number] Report ID: [id number]
--- NOTE | 2018-01-19 11:35 | ECHO ---
HEIGHT: 5 ft 8 in WEIGHT: 280 lb 0 oz DATE OF STUDY: 01/15/[address]: Zachery Joseph JR, MD 2-DIMENSIONAL: YES M.MODE: YES DOPPLER: YES COLOR FLOW: YES TDS: NO PORTABLE: NO DEFINITY: NO BUBBLE STUDY: NO DIAGNOSIS: DYSPNEA CARDIAC HISTORY: CATHERIZATION: NO SURGERY: YES PROSTHETIC VALVE: AORTIC VALVE REPLACEMENT PACEMAKER: NO MEASUREMENTS (cm) DIASTOLIC (NORMALS) SYSTOLIC (NORMALS) IVSd 1.2 (0.6-1.2) LA Diam (1.9-4.0) LVEF 53% LVIDd 3.4 (3.5-5.7) LVIDs 2.5 (2.0-3.5) %FS 26% LVPWd 1.4 (0.6-1.2) Ao Diam 2.8 (2.0-3.7) 2 DIMENSIONAL ASSESSMENT: RIGHT ATRIUM: NORAML LEFT ATRIUM: NORMAL RIGHT VENTRICLE: NORMAL LEFT VENTRICLE: NORMAL TRICUSPID VALVE: NORMAL MITRAL VALVE: NORMAL PULMONIC VALVE: NORMAL AORTIC VALVE: STATUS POST AORTIC VALVE REPLACEMENT PERICARDIAL EFFUSION: NONE AORTIC ROOT: NORMAL. LEFT VENTRICULAR WALL MOTION: NORMAL. DOPPLER/COLOR FLOW: MILD TRICUSPID REGURGITATION. COMMENTS: MILD TRICUSPID REGURGITATION. NORMAL PROSTHETIC MECHANICAL AORTIC VALVE REPLACEMENT. NORMAL EJECTION FRACTION. NO EFFUSION. TECHNOLOGIST: ZEINAB ALARCON
== END 2018-01-15 15:46 | disposition home or self-care (01) ==
LOC: ER 13:18 → ERHOLD 15:19 → INTOOBSV 15:19 → 2ND 16:26
PROVIDERS: ADMIT Family Medicine; ATTEND Internal Medicine
DX: I11.0 Hypertensive heart disease with heart failure (principal); I50.33 Acute on chronic diastolic (congestive) heart failure; D50.0 Iron deficiency anemia secondary to blood loss (chronic); E11.9 Type 2 diabetes mellitus without complications; E78.2 Mixed hyperlipidemia; I25.10 Atherosclerotic heart disease of native coronary artery without angina pectoris; Z86.73 Personal history of transient ischemic attack (TIA), and cerebral infarction without residual deficits; Z95.2 Presence of prosthetic heart valve; Z85.51 Personal history of malignant neoplasm of bladder; Z85.028 Personal history of other malignant neoplasm of stomach; Z79.01 Long term (current) use of anticoagulants; Z95.1 Presence of aortocoronary bypass graft; E66.9 Obesity, unspecified; Z68.41 Body mass index [BMI] 40.0-44.9, adult; Z88.6 Allergy status to analgesic agent; Z96.652 Presence of left artificial knee joint
CPT/HCPCS: 36415; 71045; 71275; 80048; 80053; 83735; 83880 ×2; 84439; 84443; 84484 ×3; 85025 ×2; 85610; 85730; 86850; 86900; 86901; 93005; 93306; 96374; 99285; G0378 ×2; J1940; Q9967

== ENCOUNTER 2018-05-25 18:48 | Inpatient (IN) | payer OTHER, BC ==
--- OUTSIDE RECORDS SUMMARY | 2018-05-25 19:20 | XMS REPORT | Clinical Summary ---
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 rosuvastatin Take 10 mg by mouth 0 Active (CRESTOR) 10 MG daily. tablet DULoxetine Take 60 mg by mouth 0 Active (CYMBALTA) 60 MG daily. capsule tamsulosin (FLOMAX) Take 0.4 mg by mouth 0 Active 0.4 mg Cp24 24 hr daily. capsule metFORMIN Take 1,000 mg by 0 Active (GLUCOPHAGE) 1000 MG mouth 2 (two) times tablet daily with breakfast and dinner. canagliflozin Take 100 mg by mouth 0 Active (INVOKANA) 100 mg daily. tablet finasteride Take 5 mg by mouth 0 Active (PROSCAR) 5 mg daily. tablet warfarin (COUMADIN) Take 6.5 mg by mouth 0 Active 4 MG tablet daily . SITagliptin Take 100 mg by mouth 0 Active (JANUVIA) 100 MG daily. tablet metoprolol Take 100 mg by mouth 0 Active (TOPROL-XL) 100 MG daily. 24 hr tablet enoxaparin (LOVENOX) Inject 0 Active 150 mg/mL injection subcutaneously every 12 (twelve) hours. 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 Last Filed Vital Signs Not on file Plan of Treatment Health Maintenance Due Date Last Done Comments INFLUENZA VACCINE 02/15/2018 Results Not on fileafter 05/24/2017 Insurance Payer Benefit Plan / Subscriber ID Type Phone Address Group MEDICARE MEDICARE A B xxxxxxxxxx Medicare BLUE CROSS/BLUE BCBS INDEMNITY [place] xxxxxxxxxxxx PPO [phone] [address] [place] [address] Advance Directives For more information, please contact:[address] [phone] Code Status Date Activated Date Inactivated Comments Full Code 02/11/2017 2:21 PM 02/11/2017 2:26 PM This code status was determined by: Patient Full Code 03/20/2016 4:44 PM 03/26/2016 7:35 PM This code status was determined by: Patient
--- OUTSIDE RECORDS SUMMARY | 2018-05-25 19:20 | XMS REPORT ---
:1945 Author Organization [facility] Address [address] [place] [address] Dr. Gimenez [address] [place] [id number] Care Team Providers Name Role Phone Unavailable [...] pulmonary nodules.3. Extensive atherosclerosis. Signed: Herlinda Agosto MDReport Verified Date/Time: 04/28/2017 11:35:10 Reading Location: [address] Radiology Reading Room
--- OUTSIDE RECORDS SUMMARY | 2018-05-25 19:20 | XMS REPORT | Continuity of Care Document ---
[...] Number For Provider Date Date Visit Outpatient [id number] TOÑA 11/19 [facility] Outpatient [id number] TOÑA 11/17 [facility] Procedures Procedure Code Date Perfomer Comments Source
[2018-05-25] MEDS ORDERED: MORPHINE 2 MG/ML SYR IV PRN (20:11)
[2018-05-25] MEDS ORDERED: ONDANSETRON 4 MG/2 ML VIAL IV PRN (20:11)
[2018-05-25] MEDS ORDERED: PANTOPRAZOLE 40 MG INJ IVP ONE (20:12)
[2018-05-25] MEDS ORDERED: SODIUM CHLORIDE 0.9% 10ML INJ IV PRN (20:12)
[2018-05-25] MEDS ORDERED: D50W 25 GM/50 ML SYRINGE IV PRN (20:13)
[2018-05-25] MEDS ORDERED: GLUCAGON 1 MG/VIAL IM PRN (20:13)
[2018-05-25 20:55] LABS: Protime INR 3.56
[2018-05-25] MEDS: INSULIN -REGULAR HUMAN 50 UNIT/0.5 ML ML SQ SCH (21:00)
[2018-05-25] MEDS ORDERED: NA CHLORIDE 0.9% 1,000 ML IV SCH (21:00)
[2018-05-25 21:02] LABS: Albumin 3.6 g/dL (3.4-5.0); Bilirubin Total 0.4 mg/dL (0.2-1.0); Potassium 4.3 mmol/L (3.5-5.1); Protein, Total 7.8 g/dL (6.4-8.2)
[2018-05-25] MEDS: MORPHINE 4 MG/ML SYR IV PRN (22:56)
[2018-05-25] MEDS: Ringers Lactate 1,000 ML IV SCH (23:10)
[2018-05-26 02:48] VITALS: BMI 19.9
--- NOTE | 2018-05-26 03:38 | HP ---
Date of Admission: 05/25/2018 Chief Complaint: Abdominal pain. History Of Present Illness: This is a 72-year-old male patient with history of pancreatitis in 2010, came into office today with his with 5 to 6 days' history of upper abdominal pain in the epigastric region associated with bloating. The pain has been intermittent. In last 2 to 3 weeks, he is trying to lose weight by reducing his oral intake but with this pain his appetite has been even little worse than usual. Denies any vomiting, diarrhea. Has some nausea. Denies any fever or chills. No cough. No constipation. No bleeding. No fall or injury. Denies any heartburn, indigestion. After he was evaluated at the office, a decision was made to admit him to the hospital with concerns about pancreatitis. Medications: He takes warfarin, Rapaflo 8 mg daily, multivitamin daily, metoprolol ER 50 mg daily, metformin 1000 mg 2 times a day, Januvia 100 mg p.o. daily, glimepiride 4 mg p.o. 2 times a day, furosemide 40 mg p.o. daily as needed for leg swelling, finasteride 5 mg p.o. daily, Cymbalta 60 mg p.o. daily , Crestor 10 mg p.o. daily. Allergies: TO LISINOPRIL CAUSING PANCREATITIS AND ZOLPIDEM CAUSING HALLUCINATIONS. Review of Systems: GI: As mentioned above. All other systems reviewed and negative. Family History: Significant for bladder cancer, stomach cancer, diabetes, stroke. Social History: Prior history of smoking, not at present time. Use of alcohol negative. Past Surgical History: Carotid artery endarterectomy and then carotid artery stent in 2004, aortic valve replacement in 1992 due to aortic valve stenosis. Had knee replacement, carpal tunnel syndrome surgery, left shoulder tendon repair, arthroscopic knee surgery. Past Medical History: Mixed hyperlipidemia, hypertension, sleep apnea, nonalcoholic fatty liver disease, type 2 diabetes mellitus, chronic anticoagulation therapy, chronic diastolic congestive heart failure, prosthetic heart valve, carotid artery stenosis. Physical Examination: Vital Signs: At office today, height 68 inches, weight 289 pounds, blood pressure 137/84, pulse 90, respiratory rate 16, temperature 98.1. General: Awake, alert, oriented, not in distress. HEENT: Head atraumatic, normocephalic. Conjunctivae nonerythematous. Sclerae white. Mouth, no thrush or edema noted. Ears/Nose, no mass, lesion, discharge noted. Neck: Supple. No JVD, lymph nodes, bruit, thyromegaly noted. Lungs: Bilateral good equal air entry. Clear to auscultation. No rhonchi. No rales. Heart: Normal heart sounds, no murmur or gallop. Abdomen: The patient has tenderness in upper half of abdomen. No rebound tenderness. Bowel sounds normoactive. Extremities: No leg edema. No calf tenderness. Skin: No rash, ulcer, cellulitis. Lymphatics: No lymph node enlargement in neck, supraclavicular, infraclavicular region. Neuro: No focal neurological deficit. Chest: Unremarkable. External Genitalia: Deferred. Rectal: Deferred. Laboratory Data: Sodium 139, potassium 4.3, chloride 104, bicarb 29, BUN 20, creatinine 1.13, glucose 136. Liver function tests are unremarkable. Amylase 110, lipase 2278. Procalcitonin less than 0.05. INR 3.56. Impression: 1. Acute pancreatitis. 2. Chronic anticoagulation therapy. 3. Hypertension. 4. Mixed hyperlipidemia. 5. Type 2 diabetes mellitus. 6. Nonalcoholic fatty liver disease. 7. Sleep apnea. 8. Chronic diastolic congestive heart failure. 9. Carotid artery stenosis. Plan: Admit the patient to hospital for further evaluation and management of this problem. The patient is appropriate for inpatient and is expected to spend 2 midnights in hospital. We will give him symptomatic treatment with pain medication, nausea medication. Tomorrow, we will go ahead and order CAT scan of the abdomen and if necessary we will consider ultrasound, get a lipid profile done in the morning. Give IV fluid with Ringer's lactate per order and I will see him tomorrow for followup. Home medications will be continued per order. If gallbladder ultrasound comes back okay and triglyceride comes back okay, then we will have to think about possibility of either viral infection or medication side effects and out of the different medication he takes, Januvia is one of the medication that we will have to discontinue. I will see him tomorrow for followup. ELIAS/MARGARITA Voice ID: [id number] [facility] MEDICAL CENTERZaida
[2018-05-26] MEDS: MORPHINE 4 MG/ML SYR IV PRN (03:57)
[2018-05-26 05:17] LABS: Urine Appearance CLEAR; Urine Bilirubin NEGATIVE (NEG); Urine Blood TRACE (NEG); Urine Color YELLOW; Urine Glucose NEGATIVE (NEG); Urine Protein NEGATIVE (NEG); Urine Specific Gravity 1.015 (1.005-1.030); Urine Urobilinogen 0.2 mg/dL (0.2-1.0); Urine pH 5.5 (5.0-7.0)
[2018-05-26 05:25] LABS: Absolute Lymphocytes (CBC) 1.6 K/uL (0.7-4.9); Absolute Monocytes 1.1 K/uL (0.1-1.3); Absolute Neutrophil 5.7 K/uL (1.8-8.0); Eosinophils % 3.2 % (0-4.4); Lymphocytes % 17.9 % (15.3-44.8); MPV 11.1 fL (7.6-11.3); Monocytes % 12.7 % (3.3-12.3); RBC Red Blood Cell Count 4.72 M/uL (4.33-5.43)
[2018-05-26 05:31] LABS: Urine Microscopic Reflex ORDER UMIC
[2018-05-26 05:32] LABS: Urine Bacteria <20 /HPF (NONE SEEN); Urine Culture Reflex Order NOT NEEDED; Urine RBC <5 /HPF (NONE SEEN)
[2018-05-26 06:46] LABS: Protime INR 3.32
[2018-05-26] MEDS: INSULIN -REGULAR HUMAN 50 UNIT/0.5 ML ML SQ SCH ×4 (07:30→21:45)
[2018-05-26] MEDS ORDERED: PNEUMOCOCCAL VACCINE 0.5 ML IMVAC ONE (08:00)
[2018-05-26] MEDS ORDERED: INFLUENZA VACCINE (for 3y+) 0.5 ML DOSE IMVAC ONE (08:00)
--- NOTE | 2018-05-26 09:14 | RAD REPORT ---
EXAM DESCRIPTION: CT - Abdomen Pelvis Wo Contrast - 05/26/2018 9:00 am CLINICAL HISTORY: Abdominal pain, pancreatitis COMPARISON: CT imaging January 15 TECHNIQUE: Axial [address] imaging of the abdomen and pelvis was performed without IV contrast. No IV contrast was given because of allergy, abnormal renal function, patient refusal or physician re quest. Oral contrast was given. All CT scans are performed using dose optimization technique as appropriate and may include automated exposure control or mA/KV adjustment according to patient size. FINDINGS: No acute findings in the lung bases. Patient has calcified pleural plaquing. No pericardia l thickening or effusion. Liver and spleen show no suspicious findings. No biliary tree dilatation. Gallbladder size is normal. Gallstones can be occult. Mild edema and stranding are present the peripancreatic fat around the body of the pancreas. No solid mass, cyst, abscess or pseudocyst. No hydronephrosis or suspicious renal mass. No significant adrenal finding. Isodense renal masses an d pyelonephritis cannot be excluded in the absence of IV contrast. The urinary bladder is without sig nificant finding. No dilated bowel loops or bowel wall thickening. No other inflammatory stranding. No free air or pneu matosis. No hernia, mass or bulky lymphadenopathy. No suspicious bony findings. IMPRESSION: Mild acute pancreatitis. No abscess, pseudocyst or other complicating factor. No gallbladder dilatation or biliary tree dilatation. Gallstones can be occult. Full assessment is limited is the absence of IV contrast.
--- NOTE | 2018-05-26 09:21 | RAD REPORT ---
EXAM DESCRIPTION: RAD - Chest Pa And Lat (2 Views) - 05/26/2018 9:08 am CLINICAL HISTORY: CHF, shortness of breath COMPARISON: January 14, 2018 TECHNIQUE: PA and lateral views of the chest were obtained. FINDINGS: The lungs are fibrotic. No focal mass or consolidation of the lung parenchyma seen. Patien t has dense calcified pleural plaquing not clearly different from prior imaging. Heart size upper normal for portable imaging. No vascular engorgement. Significant failure or volu me overload are not suspected. No pleural effusion or pneumothorax seen. No acute bony finding noted . No aortic abnormality. IMPRESSION: No significant failure or volume overload identifiable. Chest is not significantly different from comparison.
--- NOTE | 2018-05-26 09:22 | RAD REPORT ---
EXAM DESCRIPTION: US - Abdomen Exam Limited - 05/26/2018 9:15 am CLINICAL HISTORY: Abdominal pain COMPARISON: CT study May 26 FINDINGS: No gallstones, sludge or other abnormalities within the gallbladder lumen. There is no wal l thickening or pericholecystic fluid. No common duct stone or biliary tree dilatation identified. IMPRESSION: Normal gallbladder and biliary tree ultrasound.
[2018-05-26] MEDS: PANTOPRAZOLE 40 MG INJ IVP SCH (10:05)
[2018-05-26] MEDS: METOPROLOL XL 50 MG TAB PO SCH (10:05)
[2018-05-26] MEDS: ROSUVASTATIN 10 MG TAB PO SCH (10:06)
[2018-05-26] MEDS: DULOXETINE 30 MG CAP PO SCH (10:06)
[2018-05-26] MEDS: TAMSULOSIN 0.4 MG SR CAP PO SCH (10:06)
[2018-05-26] MEDS: Ringers Lactate 1,000 ML IV SCH ×2 (10:07→19:00)
--- NOTE | 2018-05-26 15:11 | ECHO ---
HEIGHT: 8 ft 5 in WEIGHT: 289 lb 0 oz DATE OF STUDY: 05/26/[address]: 2-DIMENSIONAL: YES M.MODE: YES DOPPLER: YES COLOR FLOW: YES TDS: PORTABLE: DEFINITY: BUBBLE STUDY: DIAGNOSIS: CONGESTIVE HEART FAILURE CARDIAC HISTORY: CATHERIZATION: NO SURGERY: NO PROSTHETIC VALVE: NO PACEMAKER: NO MEASUREMENTS (cm) DIASTOLIC (NORMALS) SYSTOLIC (NORMALS) IVSd 1.2 (0.6-1.2) LA Diam (1.9-4.0) LVEF 61% LVIDd 4.1 (3.5-5.7) LVIDs 2.8 (2.0-3.5) %FS 33% LVPWd 1.3 (0.6-1.2) Ao Diam 2.7 (2.0-3.7) 2 DIMENSIONAL ASSESSMENT: RIGHT ATRIUM: NORMAL LEFT ATRIUM: DILATED RIGHT VENTRICLE: NORMAL LEFT VENTRICLE: LEFT VENTRICULAR HYPERTROPHY TRICUSPID VALVE: NORMAL MITRAL VALVE: MITRAL ANNULAR CALCIFICATION PULMONIC VALVE: NORMAL AORTIC VALVE: STENOSIS PERICARDIAL EFFUSION: NONE AORTIC ROOT: NORMAL LEFT VENTRICULAR WALL MOTION: NORMAL DOPPLER/COLOR FLOW: MODERATE AORTIC STENOSIS. PEAK GRADIENT 39 mmHg/ 26 mmHg. ESTIMATED AORTIC VALVE AREA 1.0 CENTIMETERS SQUARED. MILD TRICUSPID REGURGITATION. MILD PULMONARY HYPERTENSION. ESTIMATED RIGHT VENTRICULAR SYSTOLIC PRESSURE 41 mmHg. NO AORTIC REGURGITATION. COMMENTS: NORMAL LEFT VENTRICULAR EJECTION FRACTION. DILATED LEFT ATRIUM. LEFT VENTRICULAR HYPERTROPHY. MITRAL ANNULAR CALCIFICATION. MODERATE AORTIC STENOSIS. TECHNOLOGIST: ZEINAB ALVARADO
[2018-05-26] MEDS: WARFARIN SODIUM 2.5 MG TAB PO SCH (17:29)
[2018-05-26] MEDS: FINASTERIDE 5 MG TAB PO SCH (17:29)
[2018-05-26] MEDS: WARFARIN SODIUM 4 MG TAB PO SCH (17:29)
[2018-05-27 00:33] VITALS: O2SAT 96
--- NOTE | 2018-05-27 01:21 | PN ---
Date of Progress Note: 05/26/2018 Subjective: The patient was seen this morning for followup. He was lying in bed. His was pres ent with him at bedside. Overall, he feels little better today than yesterday. Still has upper abdo marek pain and bloating, but overall it is better today than yesterday. Objective: Vital Signs: Reviewed. HEENT Examination: Unremarkable. Lungs: Clear to auscultation. Heart: Sounds normal. Abdomen: Soft. Bowel sounds normal. No guarding, rigidity, distention. Minimum tenderness in epig astric region. Overall, much better than yesterday. No rebound tenderness. Extremities: No leg edema. Laboratory Data: INR this morning is 3.32. Yesterday, it was 3.56. Lipase level this morning 1420. Yesterday, lipase level was 2278. Lipid profile shows normal triglyceride 133 and LDL of 53. CAT scan of abdomen today shows evidence of mild acute pancreatitis without any complication. Limited ri ght upper quadrant abdominal ultrasound showed normal gallbladder and bile duct. Impression: 1.Acute pancreatitis. 2.Chronic anticoagulation therapy. 3.Prosthetic heart valve. 4.Hypertension. 5.Diabetes mellitus. Plan: We will go ahead and we will continue his clear liquid diet. Ambulation was encouraged. We w ill start his warfarin per order. Home medications will be given per order. I have instructed the p atient to discontinue his Januvia permanently as it could be the underlying cause of his pancreatitis problem. His pancreatitis is improving. We will repeat blood work tomorrow. Continue IV fluid Rin hans's lactate per order. Echocardiogram shows normal ejection fraction. Possible discharge to go home in next day or two days. Details were discussed with him. ELIAS/MODL Voice ID: [id number] Report ID: [id number]
[2018-05-27 04:08] LABS: Protime INR 3.44
[2018-05-27 04:09] LABS: Absolute Lymphocytes (CBC) 1.5 K/uL (0.7-4.9); Absolute Monocytes 0.8 K/uL (0.1-1.3); Absolute Neutrophil 5.5 K/uL (1.8-8.0); Eosinophils % 4.1 % (0-4.4); Hematocrit 39.2 % (39.6-49.0); MPV 10.7 fL (7.6-11.3); Monocytes % 9.6 % (3.3-12.3); RBC Red Blood Cell Count 4.54 M/uL (4.33-5.43)
[2018-05-27 04:34] LABS: Bilirubin Total 0.4 mg/dL (0.2-1.0); Potassium 4.3 mmol/L (3.5-5.1); Protein, Total 6.9 g/dL (6.4-8.2)
[2018-05-27] MEDS: Ringers Lactate 1,000 ML IV SCH ×2 (05:27→15:00)
[2018-05-27] MEDS: DULOXETINE 30 MG CAP PO SCH (08:50)
[2018-05-27] MEDS: ROSUVASTATIN 10 MG TAB PO SCH (08:50)
[2018-05-27] MEDS: METOPROLOL XL 50 MG TAB PO SCH (08:51)
[2018-05-27] MEDS: TAMSULOSIN 0.4 MG SR CAP PO SCH (08:51)
[2018-05-27] MEDS: INSULIN -REGULAR HUMAN 50 UNIT/0.5 ML ML SQ SCH ×4 (08:52→21:19)
[2018-05-27] MEDS: PANTOPRAZOLE 40 MG INJ IVP SCH (08:52)
[2018-05-27] MEDS: WARFARIN SODIUM 2.5 MG TAB PO SCH (16:59)
[2018-05-27] MEDS: FINASTERIDE 5 MG TAB PO SCH (17:00)
[2018-05-27] MEDS: WARFARIN SODIUM 4 MG TAB PO SCH (17:00)
[2018-05-28] MEDS: Ringers Lactate 1,000 ML IV SCH ×2 (00:32→04:40)
--- NOTE | 2018-05-28 01:33 | PN ---
Date of Progress Note: 05/27/2018 Subjective: The patient was seen this morning for followup. No nausea, no vomiting. Tolerated clear liquid diet well. Objective: VITAL SIGNS: Reviewed. HEENT: Examination unremarkable. LUNGS: Clear to auscultation. HEART: Sounds normal. ABDOMEN: Soft. Bowel sounds normal. No guarding, rigidity, tenderness, or distention. EXTREMITIES: Exam normal. Laboratory Data: Labs reviewed. Impression: 1. Acute pancreatitis. 2. Prosthetic heart valve. 3. Chronic anticoagulation therapy. 4. Hypertension. 5. Diabetes mellitus. Plan: We will continue current medication, advance diet as per order. We will see him tomorrow for followup. Repeat blood work tomorrow. Depending on the patient's condition, we will decide if we can possibly discharge him to go home tomorrow or not. Ambulation was encouraged. ELIAS/MARGARITA Voice ID: [id number] Report ID: [id number] [facility]ida
[2018-05-28 04:46] VITALS: TEMP 97.1
[2018-05-28 06:15] LABS: Protime INR 3.67
[2018-05-28 06:24] LABS: Albumin 3.2 g/dL (3.4-5.0); Bilirubin Total 0.4 mg/dL (0.2-1.0); Potassium 4.4 mmol/L (3.5-5.1); Protein, Total 7.2 g/dL (6.4-8.2)
[2018-05-28] MEDS: INSULIN -REGULAR HUMAN 50 UNIT/0.5 ML ML SQ SCH (09:01)
[2018-05-28] MEDS: METOPROLOL XL 50 MG TAB PO SCH (09:02)
[2018-05-28] MEDS: ROSUVASTATIN 10 MG TAB PO SCH (09:02)
[2018-05-28] MEDS: DULOXETINE 30 MG CAP PO SCH (09:03)
[2018-05-28] MEDS: TAMSULOSIN 0.4 MG SR CAP PO SCH (09:03)
[2018-05-28] MEDS: PANTOPRAZOLE 40 MG INJ IVP SCH (09:03)
[2018-05-28 09:04] VITALS: BP 119/65
== END 2018-05-28 11:19 | disposition home or self-care (01) | DRG 439 ==
LOC: 4TH 19:18
PROVIDERS: ADMIT Internal Medicine; ATTEND Internal Medicine
DX: K85.90 Acute pancreatitis without necrosis or infection, unspecified (principal); I50.32 Chronic diastolic (congestive) heart failure; Z79.01 Long term (current) use of anticoagulants; Z95.2 Presence of prosthetic heart valve; E11.9 Type 2 diabetes mellitus without complications; Z88.8 Allergy status to other drugs, medicaments and biological substances; Z87.891 Personal history of nicotine dependence; Z96.659 Presence of unspecified artificial knee joint; E78.2 Mixed hyperlipidemia; K76.0 Fatty (change of) liver, not elsewhere classified; I11.0 Hypertensive heart disease with heart failure; G47.30 Sleep apnea, unspecified; I65.29 Occlusion and stenosis of unspecified carotid artery; Z79.84 Long term (current) use of oral hypoglycemic drugs
CPT/HCPCS: 36415; 71046; 74176; 76705; 80053; 80061; 81003; 81015; 82150; 82962; 83036; 83690; 83735; 84145; 84153; 85025; 85610; 85730; 93306; C9113; J7030

== ENCOUNTER 2018-07-30 14:39 | Emergency (ER) | payer OTHER, BC ==
--- OUTSIDE RECORDS SUMMARY | 2018-07-30 14:41 | XMS REPORT | Clinical Summary ---
:1945 Author Organization [facility] Address [address] [place] [address] Care Team Providers Name Role Phone Xander Rosales MD Primary Care Provider Allergies Active Allergy Reactions Severity Noted Date Comments Zolpidem 06/25/2018 Sitagliptin 06/25/2018 Lisinopril 06/25/2018 Medications Medication Sig Dispensed Refills Start Date End Date Status tamsulosin (FLOMAX) 0 06/17/2018 Active 0.4 mg capsule rosuvastatin Take 10 mg by 0 Active (CRESTOR) 10 MG mouth. tablet DULoxetine Take 60 mg by 0 Active (CYMBALTA) 60 MG mouth. capsule metFORMIN Take 1,000 mg by 0 Active (GLUCOPHAGE) 1,000 mouth. mg tablet glimepiride (AMARYL) 0 03/31/2018 Active 4 MG tablet finasteride 0 06/17/2018 Active (PROSCAR) 5 mg tablet warfarin (COUMADIN) Take 6.5 mg by 0 Active 4 MG tablet mouth. sodium phosphates Insert 133 mL (1 1 Bottle 0 07/21/2018 Active (ENEMA) 19-7 Bottle total) gram/118 mL enema into the rectum once as needed (use 2 hrs prior to procedure) for up to 1 dose. levoFLOXacin START DAY PRIOR 7 tablet 0 07/21/2018 07/28/2018 (LEVAQUIN) 750 MG TO PROCEDURE tablet Active Problems Problem Noted Date Kidney stones 06/25/2018 Elevated PSA 06/25/2018 Encounters Date Type Specialty Care Team Description 07/29/2018 Office Visit Urology Mo Nayak MD Elevated PSA (Primary Dx ) 07/29/2018 Ancillary Procedure Urology Mo Nayak MD Elevated PSA 07/21/2018 Orders Only Urology Cat Malone, LUBNA 07/21/2018 Orders Only Urology Cat Malone, Elevated PSA (Primary Dx) MA 07/21/2018 Telephone Mo Farnsworth MD 07/15/2018 Telephone Mo Farnsworth MD 07/08/2018 Hospital Encounter Radiology Mo Nayak MD Elevated PSA 06/30/2018 Telephone Mo Farnsworth MD 06/30/2018 Orders Only Urology KiraAnnette banksena, Elevated PSA (Primary Dx) MA 06/25/2018 Office Visit Mo Farnsworth MD Elevated PSA (Primary Dx ) after 07/29/2017 Family History Relation Name Status Comments Father Mother Social History Tobacco Use Types Packs/Day Years Used Date Former Smoker Smokeless Tobacco: Former User Comments: quit 1994 Alcohol Use Drinks/Week oz/Week Comments No Alcohol Habits Answer Date Recorded How often do you have a drink containing alcohol? Never 06/25/2018 How many drinks containing alcohol do you have on a typical Not asked day when you are drinking? How often do you have six or more drinks on one occasion? Not asked Sex Assigned at Date Recorded Not on file Job Start Date Occupation Industry Not on file Not on file Not on file Travel History Travel Start Travel End No recent travel history available. Last Filed Vital Signs Vital Sign Reading Time Taken Blood Pressure 126/66 06/25/2018 9:14 AM DIRECT SUPPORT STAFF MEMBER Pulse 73 06/25/2018 9:14 AM DIRECT SUPPORT STAFF MEMBER Temperature - - Respiratory Rate - - Oxygen Saturation - - Inhaled Oxygen Concentration - - Weight 124 kg (274 lb) 07/08/2018 2:40 PM DIRECT SUPPORT STAFF MEMBER Height 172.7 cm (5' 8") 07/08/2018 2:40 PM DIRECT SUPPORT STAFF MEMBER Body Mass Index 41.66 07/08/2018 2:40 PM DIRECT SUPPORT STAFF MEMBER Plan of Treatment Date Type Specialty Care Team Description 08/12/2018 Office Visit Mo Farnsworth MD [address] [facility] [address] [place], [place] [id number] 06/24/2019 Office Visit Mo Farnsworth MD [address] [facility] [address] [place] [address] Health Maintenance Due Date Last Done Comments COLON CANCER SCREENING 08/24/1995 SHINGLES VACCINES (#1) 08/24/1995 65+ PNEUMOCOCCAL VACCINE (1 of 2 - PCV13) 2010 PNEUMOCOCCAL POLYSACCHARIDE VACCINE AGE 65 AND OVER 2010 INFLUENZA VACCINE 12/16/2017 Procedures Procedure Name Priority Date/Time Associated Comments Diagnosis US NEEDLE BIOPSY Routine 07/29/2018 11:01 Elevated PSA Results for this AM CDT procedure are in the results section. MRI PROSTATE WWO Routine 07/08/2018 3:30 Elevated PSA Results for this CONTRAST PM DIRECT SUPPORT STAFF MEMBER procedure are in the results section. POC CREATININE Routine 07/08/2018 2:27 Results for this PM DIRECT SUPPORT STAFF MEMBER procedure are in the results section. ESTIMATED GFR Routine 07/08/2018 2:27 Results for this PM DIRECT SUPPORT STAFF MEMBER procedure are in the results section. PSA, TOTAL AND FREE Routine 06/25/2018 10:09 Elevated PSA Results for this AM DIRECT SUPPORT STAFF MEMBER procedure are in the results section. TESTOSTERONE LEVEL, Routine 06/25/2018 10:09 Elevated PSA Results for this FREE AND TOTAL, MALE AM DIRECT SUPPORT STAFF MEMBER procedure are in the results section. after 07/29/2017 Results US Needle Biopsy (07/29/2018 11:01 AM CDT) Narrative Performed At Ultrasound / MRIguided Prostate Needle Biopsy [facility] Diagnosis Elevated PSA Previous Bx:none Findings: Prostate echogenicity: Heterogenous Calcifications: Small focal Measurements: Whole Gland AP Diamter:3.4 cm. Trasverse:3.8 cm. Length 3.8 cm. Total Mdfgne87 mL. Nodule AP Diamter:1.96 cm. Trasverse:1.44 cm. Length 2.32 cm. Total Volume3.46 mL.Right lobe Ultrasound guided biopsies under local anesthesia: 12 Template Biopsies. 2 Additional Biopsies ofMRI HILLARY PI-RADS 5 right . : Comments: Fusion guided prostate needle BX was performed by and procedure was tolerated very well. Total 14 cores were taken under local anesthesia 2% lidocaine 5 cc on each side. Performing Organization Address City/State/Zipcode Phone Number [facility] [address] [place] [address] MRI Prostate Wwo Contrast (07/08/2018 3:30 PM DIRECT SUPPORT STAFF MEMBER) Narrative Performed At EXAMINATION:MRI PROSTATE WWO CONTRAST [facility] CLINICAL HISTORY:R97.20 Elevated prostate specific antigen (PSA), elevated psa COMPARISON:None. TECHNIQUE: Using a pelvic phased array coil, multiplanar, multisequence MRI of the pelvis was performed with a prostate-specific protocol with and without contrast. Diffusion weighted images and dynamic contrast enhanced images were performed. IMPRESSION: Image quality is limited by motion. The prostate gland measures 3.8x 4.0x 3.2cm. Estimated prostatic volume is 25cc calculated by ellipsoid formula. Central gland: The central gland is diminutive in size. No focal lesion identified. Peripheral zone: The right peripheral zone is enlarged relative to the left, and there is diffusely decreased signal intensity throughout the right PZ from base to apex involving the anterior and posterior sectors, with corresponding diffusion restriction, ADC less than 400. This is contiguous with abnormal T2 signal hypointensity and diffusion restriction involving the posterior medial sector of the left RESISTOR WINDER from base to apex, ADC 550. Overa ll, this area measures 3.0 x 1.6 x 2.3 cm. Broad capsular contact involving essentially the entirety of the right RESISTOR WINDER, over a distance of at least 4.5 cm. Mild capsular bulging along the posterolateral aspect. MT 5. Seminal vesicles: Atrophic, otherwise grossly unremarkable. Extracapsular extension: Capsular contact > 1.5 cm + Capsular bulge/ irregulariy.Probability of PADMINI approx 38%. Bladder: Collapsed, accentuating wall thickness. Lymph nodes: Normal-sized external iliac lymph nodes are nonspecific. No lymphadenopathy identified. Bones: Nothing unusual. A lobulated cystic structure medial to the left hip partially visualized measuring at least 3 cm, suggesting a paralabral cyst in association with acetabular labral tear. This can be better assessed with a dedicated left hip MRI if indicated. Small bilateral inguinal hernias slightly greater on the left, each containing fat only. SUMMARY: PI-RADS score: 5 Abnormal signal intensity and diffusion restriction and enhancement involving essentially the entirety of the right peripheral zone also extending across midline into the left PZpm sector. Capsular bulge and broad capsular contact conferring a 38% probability of PADMINI. The presence of a significant prostate cancer is: PI-RADS 1: Highly unlikely PI-RADS 2: Unlikely PI-RADS 3: Equivocal PI-RADS 4: Likely PI-RADS 5: Highly likely [id number] Procedure Note Hm Interface, Radiology Results Incoming - 07/08/2018 5:15 PM DIRECT SUPPORT STAFF MEMBER EXAMINATION: MRI PROSTATE WWO CONTRAST CLINICAL HISTORY: R97.20 Elevated prostate specific antigen (PSA), elevated psa COMPARISON: None. TECHNIQUE: Using a pelvic phased array coil, multiplanar, multisequence MRI of the pelvis was performed with a prostate-specific protocol with and without contrast. Diffusion weighted images and dynamic contrast enhanced images were performed. IMPRESSION: Image quality is limited by motion. The prostate gland measures 3.8 x 4.0 x 3.2 cm. Estimated prostatic volume is 25 cc calculated by ellipsoid formula. Central gland: The central gland is diminutive in size. No focal lesion identified. Peripheral zone: The right peripheral zone is enlarged relative to the left, and there is diffusely decreased signal intensity throughout the right PZ from base to apex involving the anterior and posterior sectors, with corresponding diffusion restriction, ADC less than 400. This is contiguous with abnormal T2 signal hypointensity and diffusion restriction involving the posterior medial sector of the left RESISTOR WINDER from base to apex, ADC 550. Overall, this area measures 3.0 x 1.6 x 2.3 cm. Broad capsular contact involving essentially the entirety of the right RESISTOR WINDER, over a distance of at least 4.5 cm. Mild capsular bulging along the posterolateral aspect. MT 5. Seminal vesicles: Atrophic, otherwise grossly unremarkable. Extracapsular extension: Capsular contact > 1.5 cm + Capsular bulge/ irregulariy. Probability of PADMINI approx 38%. Bladder: Collapsed, accentuating wall thickness. Lymph nodes: Normal-sized external iliac lymph nodes are nonspecific. No lymphadenopathy identified. Bones: Nothing unusual. A lobulated cystic structure medial to the left hip partially visualized measuring at least 3 cm, suggesting a paralabral cyst in association with acetabular labral tear. This can be better assessed with a dedicated left hip MRI if indicated. Small bilateral inguinal hernias slightly greater on the left, each containing fat only. SUMMARY: PI-RADS score: 5 Abnormal signal intensity and diffusion restriction and enhancement involving essentially the entirety of the right peripheral zone also extending across midline into the left PZpm sector. Capsular bulge and broad capsular contact conferring a 38% probability of PADMINI. The presence of a significant prostate cancer is: PI-RADS 1: Highly unlikely PI-RADS 2: Unlikely PI-RADS 3: Equivocal PI-RADS 4: Likely PI-RADS 5: Highly likely [id number] Performing Organization Address [facility] [place] Number [address] [address] Estimated GFR (07/08/2018 2:27 PM DIRECT SUPPORT STAFF MEMBER) Estimated GFR 74 mL/min/1.73 m2 [facility] Comment: HOSPITAL CatergoryUnitsInterpretation G1 >=90 Normal or high G2 60-89Mildly decreased [id number] to moderately decreased [id number] to severely decreased G4 15-29Severely decreased G5 <15Kidney failure The eGFR was calculated using the Chronic Kidney Disease Epidemiology Collaboration (CKD-EPI) equation. Interpretation is based on recommendations of the National Kidney Foundation-Kidney Disease Outcomes Quality Initiative (NKF-KDOQI) published in 2014. Specimen Blood Performing Organization Address [facility] [place] Phone Number [facility] DEPARTMENT OF PATHOLOGY AND [address] [place] [phone] POC creatinine (07/08/2018 2:27 PM DIRECT SUPPORT STAFF MEMBER) POC creatinine 1.0 0.7 - 1.2 mg/dl [facility] Comment: Meter ID: [id number] High Speed Printer Operator: Sotero Schumacher Specimen Blood Performing Organization Address [facility] [place] Phone Number [facility] DEPARTMENT OF PATHOLOGY AND [address] [place], [place] [id number] Testosterone level, free and total, male (06/25/2018 10:09 AM DIRECT SUPPORT STAFF MEMBER) Testosterone 129 (L) 264 - 916 ng/dL [facility] Comment: Adult male reference interval is based on a population of healthy nonobese males (BMI <30) between 19 and 39 years old. nik De Leon.al. JCEM 2017,102;4624-9426. PMID: [id number]. Testosterone, free 7.3 6.6 - 18.1 pg/mL [facility] 02 Specimen Blood Narrative Performed At Performed at: [facility] [address] [place], [id number] Stove Cleaner: Satya Nieto MD, Phone:[phone] Performed at: - [facility] [id number] Stove Cleaner: Carlton Murguia MD, Phone:[phone] Performing Organization Address City/[facility] Phone Number [facility] 02 PSA, total and free (06/25/2018 10:09 AM DIRECT SUPPORT STAFF MEMBER) PSA 15.1 (H) 0.0 - 4.0 ng/mL [facility] Comment: Juan ECLIA methodology. According to the [place] U[employer] Association, Serum PSA should decrease and remain at undetectable levels after radical prostatectomy. The AUA defines biochemical recurrence as an initial PSA value 0.2 ng/mL or greater followed by a subsequent confirmatory PSA value 0.2 ng/mL or greater. Values obtained with different assay methods or kits cannot be used interchangeably. Results cannot be interpreted as absolute evidence of the presence or absence of malignant disease. PSA, free 2.48Comment: Juan ECLIA methodology. N/A ng/mL [facility] PSA, free percent 16.4 % [facility] Comment: The table below lists the probability of prostate cancer for men with non-suspicious MUMTAZ results and total PSA between 4 and 10 ng/mL, by patient age (Yousuf et al, AMOL 1998, 279:1542). % Free PSA 50-64 yr 65-75 yr 0.00-10.00%56% 55% 10.01-15.00%24% 35% 15.01-20.00%17% 23% 20.01-25.00%10% 20% >25.00% 5% 9% Please note:Yousuf et al did not make specific recommendations regarding the use of percent free PSA for any other population of men. Specimen Blood Narrative Performed At Performed at: - [facility] [address] [place], [id number] Stove Cleaner: Satya Nieto MD, Phone:[phone] Performing Organization Address City/[facility]/Zipcode Phone Number [facility] after 07/29/2017 Insurance Payer Benefit Plan / Group Subscriber ID Type Phone Address MEDICARE MEDICARE PART A AND B xxxxxxxxxxx Medicare [place], [place] BCBS [employer]/HMO BLUE xxxxxxxxxxxx HMO [employer]S (Home) [place] [address] Advance Directives Patient has advance care planning documents on file. For more information, please contact:Kenneth Jaramillo[address] [place] [address]
--- OUTSIDE RECORDS SUMMARY | 2018-07-30 14:42 | XMS REPORT ---
:1945 [facility] Address [address] [place] [address] [address]. [address] [place] [address] Care Team Providers Name Role Phone Unavailable [...] Agosto Verified Date/Time: 04/28/2017 11:35:10 Reading Location: [address] Radiology Reading Room
--- OUTSIDE RECORDS SUMMARY | 2018-07-30 14:42 | XMS REPORT | Continuity of Care Document ---
[...] Number For Provider Date Date Visit Outpatient [id number] TOÑA 11/19 [facility] Outpatient [id number] TOÑA 11/17 [facility] Procedures Procedure Code Date Perfomer Comments Source
--- OUTSIDE RECORDS SUMMARY | 2018-07-30 14:42 | XMS REPORT | Clinical Summary ---
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 Unavailable Sharpless Primary Care Provider Allergies [...] INFLUENZA VACCINE 02/15/2018 Results Not on fileafter 07/29/2017 Insurance Payer Benefit Plan / Subscriber ID Type Phone Address Group MEDICARE MEDICARE A B xxxxxxxxxx Medicare BLUE CROSS/BLUE BCBS INDEMNITY [place] xxxxxxxxxxxx PPO [phone] [address] [place] [address] Advance Directives For more information, please contact:[address] [phone] Code Status Date Activated Date Inactivated Comments Full Code 02/11/2017 2:21 PM 02/11/2017 2:26 PM This code status was determined by: Patient Full Code 03/20/2016 4:44 PM 03/26/2016 7:35 PM This code status was determined by: Patient
--- NOTE | 2018-07-30 17:08 | EDPHYS ---
Physician Documentation [facility] Name: Jonathan Lo Age: 72 yrs Sex: Male : 1945 Arrival Date: 07/30/2018 Time: 14:42 Bed 6 Private MD: Darek Rosales C ED Physician Benton Reina HPI: 07/30 17:31 This 72 yrs old Male presents to ER via Ambulatory with complaints of Leg kb Swelling, Leg Pain. 17:31 The complaints affect the right leg. The patient has not experienced similar symptoms kb in the past. The patient has not recently seen a physician. 17:32 The patient presents with pain, that is acute, tenderness. Context: The problem was kb sustained at home, resulted from an unknown cause, the patient can fully bear weight, can ambulate using a cane. Onset: The symptoms/episode began/occurred last week. Modifying factors: The symptoms are alleviated by nothing. the symptoms are aggravated by nothing. Associated signs and symptoms: Pertinent positives: calf tenderness, Pertinent negatives fever, nausea, numbness, rash, swelling, tingling, vomiting, warmth, weakness. Treatment prior to arrival includes: no previous treatment. Severity of symptoms: At their worst the symptoms were mild, moderate, in the emergency department the symptoms are unchanged. Pt reports pain in right leg. "I thought it was just a muscle, but I've been off of my coumadin for a procedure so I was worried about a clot.". Historical: - Allergies: 14:46 Aspirin; sv 14:46 Lisinopril; sv 14:46 zolpidem tartrate; sv - Home Meds: 15:04 Coumadin 6.5 mg Oral tab 1 tab once daily [Active]; Crestor 10 mg Oral tab 1 tab once hj daily [Active]; Cymbalta 60 mg Oral cpDR 1 cap once daily [Active]; finasteride 5 mg Oral tab 1 tab once daily [Active]; glimepiride 4 mg Oral tab 1 tab twice a day [Active]; Glucophage 1,000 mg Oral tab 1 tab 2 times per day [Active]; Januvia 100 mg Oral tab 1 tab once daily [Active]; tamsulosin 0.4 mg Oral cp24 1 cap once daily [Active]; Toprol XL 100 mg Oral Tb24 1 tab once daily [Active]; - PMHx: 14:46 CAD; Diabetes - NIDDM; High Cholesterol; Hypertension; neuropathy; sv 14:48 RLE DVTs; sv - Immunization history:: Adult Immunizations up to date. - Social history:: Smoking status: Patient/guardian denies using tobacco, Patient/guardian denies using alcohol. - Ebola Screening: : Patient negative for fever greater than or equal to 101.5 degrees Fahrenheit, and additional compatible Ebola Virus Disease symptoms Patient denies exposure to infectious person Patient denies travel to an Ebola-affected area in the 21 days before illness onset. ROS: 17:30 Constitutional: Negative for fever, chills, and weight loss, ENT: Negative for injury, kb pain, and discharge, Neck: Negative for injury, pain, and swelling, Cardiovascular: Negative for chest pain, palpitations, and edema, Respiratory: Negative for shortness of breath, cough, wheezing, and pleuritic chest pain, Abdomen/GI: Negative for abdominal pain, nausea, vomiting, diarrhea, and constipation, Skin: Negative for injury, rash, and discoloration, Neuro: Negative for headache, weakness, numbness, tingling, and seizure. 17:30 MS/extremity: Positive for pain, tenderness. Exam: 17:29 Constitutional: This is a well developed, well nourished patient who is awake, alert, kb and in no acute distress. Head/Face: Normocephalic, atraumatic. Chest/axilla: Normal chest wall appearance and motion. Nontender with no deformity. No lesions are appreciated. Cardiovascular: Regular rate and rhythm with a normal S1 and S2. No gallops, murmurs, or rubs. Normal PMI, no JVD. No pulse deficits. Respiratory: Lungs have equal breath sounds bilaterally, clear to auscultation and percussion. No rales, rhonchi or wheezes noted. No increased work of breathing, no retractions or nasal flaring. Abdomen/GI: Soft, non-tender, with normal bowel sounds. No distension or tympany. No guarding or rebound. No evidence of tenderness throughout. Skin: Warm, dry with normal turgor. Normal color with no rashes, no lesions, and no evidence of cellulitis. Neuro: Awake and alert, GCS 15, oriented to person, place, time, and situation. Cranial nerves II-XII grossly intact. Motor strength 5/5 in all extremities. Sensory grossly intact. Cerebellar exam normal. Normal gait. 17:29 Musculoskeletal/extremity: Extremities: grossly normal except: noted in the right leg: pain, ROM: intact in all extremities, Circulation is intact in all extremities. Sensation intact. Weight bearing: can bear weight with assistance only, uses cane, Calves: are tender, on left. Vital Signs: 14:46 Pulse 79; Resp 20; Temp 98.5; Pulse Ox 97% ; Weight 124.74 kg; Height 5 ft. 8 in. sv (172.72 cm); Pain 7/10; 15:27 BP 105 / 83; Pulse 74; Resp 17; Pulse Ox 93% on R/A; Pain 5/10; pc1 16:04 BP 124 / 58; Pulse 70; Resp 18; Pulse Ox 96% on R/A; hj 17:16 BP 125 / 78; Pulse 72; Resp 18; Pulse Ox 100% on R/A; hj 14:46 Body Mass Index 41.81 (124.74 kg, 172.72 cm) sv MDM: 14:58 Patient medically screened. kb 17:06 Data reviewed: vital signs, nurses notes. Data interpreted: Pulse oximetry: on room air kb is 96 %. Interpretation: normal. Counseling: I had a detailed discussion with the patient and/or guardian regarding: the historical points, exam findings, and any diagnostic results supporting the discharge/admit diagnosis, radiology results, the need for outpatient follow up, a family practitioner, to return to the emergency department if symptoms worsen or persist or if there are any questions or concerns that arise at home. 07/30 15:06 Order name: US Extremity Venous Unilateral Ltd kb 07/30 15:00 Order name: EKG; Complete Time: 15:01 sv 07/30 15:00 Order name: EKG - Nurse/Tech; Complete Time: 15:01 sv Administered Medications: 17:06 Drug: [place] 5 mg-325 mg 1 tabs Route: PO; hj 17:10 Follow up: Response: No adverse reaction hj Disposition: 07/30/18 17:08 Discharged to Home. Impression: Pain in right leg. - Condition is Stable. - Discharge Instructions: Musculoskeletal Pain. - Prescriptions for Tylenol- Codeine #3 300-30 mg Oral Tablet - take 1 tablet by ORAL route every 6 hours As needed; 15 tablet. - Medication Reconciliation Form, Thank You Letter, Antibiotic Education, Prescription Opioid Use form. - Follow up: Emergency Department; When: As needed; Reason: Worsening of condition. Follow up: Darek Rosales MD; When: 2 - 3 days; Reason: Recheck today's complaints, Continuance of care, Re-evaluation by your physician. Addendum: 08/02/2018 07:11 Co-signature as Attending Physician, Benton Reina MD I agree with the assessment and c colvin plan of care. Signatures: Dispatcher [employer] EDME Angela North, ARTHUR-C SEARCH MARKETING ANALYST-Dolly Marie, RN RN Benton Oropeza MD MD cha Joaquin, Henry RN RN hj Corrections: (The following items were deleted from the chart) 07/30 17:16 17:08 07/30/2018 17:08 Discharged to Home. Impression: Pain in right leg. Condition is hj Stable. Forms are Medication Reconciliation Form, Thank You Letter, Antibiotic Education, Prescription Opioid Use. Follow up: Emergency Department; When: As needed; Reason: Worsening of condition. Follow up: Darek Rosales; When: 2 - 3 days; Reason: Recheck today's complaints, Continuance of care, Re-evaluation by your physician. kb
--- NOTE | 2018-07-30 17:08 | ER ---
Nurse's Notes [facility] Name: Jonathan Lo Age: 72 yrs Sex: Male : 1945 Arrival Date: 07/30/2018 Time: 14:42 Bed 6 Private MD: Darek Rosales C Diagnosis: Pain in right leg Presentation: 07/30 14:45 Presenting complaint: Patient states: RLE swelling and pain, pt has been off of his sv Coumadin for 3 days but is on Lovenox for the past 3 days for a procedure. Transition of care: patient was not received from another setting of care. Onset of symptoms was July 29, 2018. Care prior to arrival: None. 14:45 Method Of Arrival: Ambulatory sv 14:45 Acuity: BOYD 3 sv 15:00 Risk Assessment: Do you want to hurt yourself or someone else? Patient reports no hj desire to harm self or others. Initial Sepsis Screen: Does the patient meet any 2 criteria? No. Patient's initial sepsis screen is negative. Does the patient have a suspected source of infection? No. Patient's initial sepsis screen is negative. Triage Assessment: 14:59 General: Appears in no apparent distress. uncomfortable, Behavior is calm, cooperative, hj appropriate for age. Pain: Complains of pain in R leg. 15:09 Pain: Complains of pain in right leg Pain radiates to right leg from right ankle up to pc1 the right knee Pain currently is 5 out of 10 on a pain scale. at worst was 8 out of 10 on a pain scale. Quality of pain is described as sharp, Pain began 1 day ago. Alleviated by rest, Aggravated by increased activity. Historical: - Allergies: 14:46 Aspirin; sv 14:46 Lisinopril; sv 14:46 zolpidem tartrate; sv - Home Meds: 15:04 Coumadin 6.5 mg Oral tab 1 tab once daily [Active]; Crestor 10 mg Oral tab 1 tab once hj daily [Active]; Cymbalta 60 mg Oral cpDR 1 cap once daily [Active]; finasteride 5 mg Oral tab 1 tab once daily [Active]; glimepiride 4 mg Oral tab 1 tab twice a day [Active]; Glucophage 1,000 mg Oral tab 1 tab 2 times per day [Active]; Januvia 100 mg Oral tab 1 tab once daily [Active]; tamsulosin 0.4 mg Oral cp24 1 cap once daily [Active]; Toprol XL 100 mg Oral Tb24 1 tab once daily [Active]; - PMHx: 14:46 CAD; Diabetes - NIDDM; High Cholesterol; Hypertension; neuropathy; sv 14:48 RLE DVTs; sv - Immunization history:: Adult Immunizations up to date. - Social history:: Smoking status: Patient/guardian denies using tobacco, Patient/guardian denies using alcohol. - Ebola Screening: : Patient negative for fever greater than or equal to 101.5 degrees Fahrenheit, and additional compatible Ebola Virus Disease symptoms Patient denies exposure to infectious person Patient denies travel to an Ebola-affected area in the 21 days before illness onset. Screenin:59 Abuse screen: Denies threats or abuse. Denies injuries from another. Nutritional hj screening: No deficits noted. Tuberculosis screening: No symptoms or risk factors identified. Fall Risk None identified. Assessment: 15:07 General: Appears in no apparent distress. uncomfortable, Behavior is calm, cooperative. pc1 Neuro:. Musculoskeletal: Circulation, motion, and sensation intact. Capillary refill < 3 seconds, in bilateral toes. Reports pain in right leg since One day ago. 15:07 General: Appears in no apparent distress. uncomfortable, Behavior is calm, cooperative, hj appropriate for age. Pain: Complains of pain in right leg. Neuro: Level of Consciousness is awake, alert, obeys commands, Oriented to person, place, time, situation, Appropriate for age. Cardiovascular: Capillary refill < 3 seconds Patient's skin is warm and dry. Respiratory: Airway is patent Respiratory effort is even, unlabored, Respiratory pattern is regular, symmetrical, Breath sounds are clear. GI: No signs and/or symptoms were reported involving the gastrointestinal system. : No signs and/or symptoms were reported regarding the genitourinary system. EENT: No signs and/or symptoms were reported regarding the EENT system. Derm: No signs and/or symptoms reported regarding the dermatologic system. Musculoskeletal: Circulation, motion, and sensation intact. Capillary refill Reports pain in right leg since a day ago. 16:04 Reassessment: Patient and/or family updated on plan of care and expected duration. Pain hj level reassessed. Patient is alert, oriented x 3, equal unlabored respirations, skin warm/dry/pink. awaiitng US;. 17:16 Reassessment: Patient and/or family updated on plan of care and expected duration. Pain hj level reassessed. Patient is alert, oriented x 3, equal unlabored respirations, skin warm/dry/pink. D/C instructions given;. Vital Signs: 14:46 Pulse 79; Resp 20; Temp 98.5; Pulse Ox 97% ; Weight 124.74 kg; Height 5 ft. 8 in. sv (172.72 cm); Pain 7/10; 15:27 BP 105 / 83; Pulse 74; Resp 17; Pulse Ox 93% on R/A; Pain 5/10; pc1 16:04 BP 124 / 58; Pulse 70; Resp 18; Pulse Ox 96% on R/A; hj 17:16 BP 125 / 78; Pulse 72; Resp 18; Pulse Ox 100% on R/A; hj 14:46 Body Mass Index 41.81 (124.74 kg, 172.72 cm) sv ED Course: 14:42 Patient arrived in ED. mr 14:43 Darek Rosales MD is Private Physician. mr 14:46 Triage completed. sv 14:48 Arm band placed on. sv 14:55 Reed Taylor, VALENTIN is Primary Nurse. hj 14:57 [facility]C [facility] kb 14:57 Benton Reina MD is Attending Physician. kb 15:01 Patient has correct armband on for positive identification. Placed in gown. Bed in low hj position. Call light in reach. Side rails up X 1. 15:09 EKG done, by multi craft maintenance technician. reviewed by Angela LIZAMA. sm3 16:58 Ultrasound completed. Patient tolerated well. sg3 16:59 US Extremity Venous Unilateral Ltd In Process Unspecified. EDMS 17:07 Darek Rosales MD is Referral Physician. kb 17:15 No provider procedures requiring assistance completed. Patient did not have IV access hj during this emergency room visit. Administered Medications: 17:06 Drug: [place] 5 mg-325 mg 1 tabs Route: PO; hj 17:10 Follow up: Response: No adverse reaction hj Outcome: 17:08 Discharge ordered by . kb 17:15 Discharged to home ambulatory, with family. hj 17:15 Condition: stable 17:15 Discharge instructions given to patient, family, Instructed on discharge instructions, follow up and referral plans. medication usage, Demonstrated understanding of instructions, follow-up care, medications, Prescriptions given X 1. 17:16 Patient left the ED. isabelle Signatures: Dispatcher [employer] EDMS Angela North, LIBRARY HISTORIAN-C LIBRARY HISTORIAN-Dolly Marie, RN Kary Guillen Henry, RN RN hj Godinez, Sarah 3 Shavon Tamez 3 Mainor Castro pc1 Corrections: (The following items were deleted from the chart) 16:04 15:07 General: Appears distressed, uncomfortable, Behavior is calm, cooperative, pc1
--- NOTE | 2018-07-30 17:16 | RAD REPORT ---
EXAM DESCRIPTION: USExtlv Venous Uni Ltd3 4:59 pm CLINICAL HISTORY: Right leg pain COMPARISON: None. FINDINGS: Right common femoral, superficial femoral, popliteal and right posterior tibial veins are compressible and demonstrate augmentation. Doppler demonstrates good flow. IMPRESSION: No evidence of deep venous thrombosis involving the right lower extremity.
[2018-07-30] MEDS ORDERED: HYDROCODONE/APAP 5/325 MG TAB ONE (17:20)
[2018-07-30 17:29] VITALS: TEMP 98.5
[2018-07-30 17:34] VITALS: BP 125/78; O2SAT 100
--- NOTE | 2018-07-31 09:23 | EKG ---
Test Date: 2018-07-30 Test Time: 15:00:15 Choir Director: RIYA MEASUREMENT RESULTS: Intervals: Rate: 79 RI: 206 QRSD: 122 QT: 398 QTc: 456 [place]: P: -6 RI: 206 QRS: 8 T: 63 INTERPRETIVE STATEMENTS: Normal sinus rhythm Possible Anterior infarct, age undetermined Abnormal ECG Compared to ECG 01/14/2018 13:54:51 Myocardial infarct finding now present Sinus tachycardia no longer present Left bundle-branch block no longer present T-wave abnormality no longer present Possible ischemia no longer present Electronically Signed On 07-31-18 09:21:36 CDT by Charlie Bernardo
== END 2018-07-30 17:16 | disposition home or self-care (01) ==
LOC: ER 14:39
DX: M79.604 Pain in right leg (principal); I25.10 Atherosclerotic heart disease of native coronary artery without angina pectoris; I10 Essential (primary) hypertension; E11.9 Type 2 diabetes mellitus without complications; E78.00 Pure hypercholesterolemia, unspecified; Z79.01 Long term (current) use of anticoagulants; Z88.6 Allergy status to analgesic agent; Z88.8 Allergy status to other drugs, medicaments and biological substances
CPT/HCPCS: 93005; 93971; 99284

== ENCOUNTER 2019-08-15 19:54 | Emergency (ER) | payer OTHER, BC ==
--- OUTSIDE RECORDS SUMMARY | 2019-08-15 19:57 | XMS REPORT ---
:1945 [facility] Address [address] [place] [address] [address] [place] [address] Care Team Providers Name Role Phone Unavailable [...] Agosto Verified Date/Time: 04/28/2017 11:35:10 Reading Location: [address] Radiology Reading Room
[2019-08-15] MEDS ORDERED: CEFTRIAXONE/SWI 1gm 1 GM/10 ML SYR ONE (21:04)
[2019-08-15] MEDS ORDERED: NA CHLORIDE 0.9% 1,000 ML ONE (21:04)
[2019-08-15 21:06] LABS: Absolute Lymphocytes (CBC) 0.6 K/uL (0.7-4.9); Basophils % 0.1 % (0-1.3); Hematocrit 39.9 % (39.6-49.0); Lymphocytes % 5.1 % (15.3-44.8); MPV 10.5 fL (7.6-11.3)
[2019-08-15 21:11] LABS: Protime INR 3.96
[2019-08-15 21:26] LABS: ALT/SGPT 14 U/L (12-78); AST/SGOT 12 U/L (15-37); Albumin 2.9 g/dL (3.4-5.0); Alkaline Phosphatase 61 U/L (45-117); Amylase Level 37 U/L (25-115); BUN Blood Urea Nitrogen 16 mg/dL (7-18); Bicarbonate 28 mmol/L (21-32); Bilirubin Direct < 0.1 mg/dL (0-0.2); Bilirubin Total 0.4 mg/dL (0.2-1.0); CKMB Creatine Kinase MB 1.5 ng/mL (0.3-3.6); Creatine Phosphokinase 41 U/L (39-308); Glucose Level 199 mg/dL (74-106); Lipase 120 U/L (73-393); Potassium 3.8 mmol/L (3.5-5.1); Protein, Total 7.5 g/dL (6.4-8.2); Sodium Level 141 mmol/L (136-145); Troponin (Emerg Dept Use Only) < 0.02 ng/mL (0.0-0.045)
[2019-08-15 22:52] LABS: Blood Morphology Comment NOT SEEN (NOT SEEN); Platelet Estimate ADEQ
[2019-08-15 22:53] LABS: Urine Blood TRACE (NEG); Urine Glucose NEGATIVE (NEG); Urine Protein 2+ (NEG); Urine Specific Gravity 1.025 (1.005-1.030); Urine pH 6.5 (5.0-7.0)
[2019-08-15 22:53] LABS: Urine Bacteria <20 /HPF (NONE SEEN); Urine Culture Reflex Order NOT NEEDED; Urine RBC <5 /HPF (NONE SEEN)
--- NOTE | 2019-08-15 23:08 | RAD REPORT ---
EXAM DESCRIPTION: Parisa Single View08/15/2019 10:56 pm CLINICAL HISTORY: cough COMPARISON: 2019 FINDINGS: The lungs appear clear of acute infiltrate. The heart is mildly enlarged. Postsurgical changes involve the chest. Bilateral calcified pleural plaques IMPRESSION: No acute abnormalities displayed
--- NOTE | 2019-08-16 00:38 | ER ---
Nurse's Notes [facility] Name: Jonathan Lo Age: 73 yrs Sex: Male : 1945 Arrival Date: 08/15/2019 Time: 20:00 Bed 18 Private MD: Diagnosis: Cystitis Presentation: 08/14 20:19 Chief complaint: Spouse and/or significant other states: I've been checking his ca1 temperature today and it was low aw at 91-[address] Rosales and he said to come to the ER. Also, he said he was feeling bad for the past few days. , he had blood in his urine. Thursday, he started aching all over and sweating in the afternoon. Thursday and Thursday he was still aching but was taking Tylenol. Today, he started feeling bad again, and sweating again. Denies fever. Reports cough x 3-4 days, Reports history of Asbestosis. Coronavirus screen: Surgical mask placed on patient. Patient moved to private room, placed in contact and droplet isolation with eye protection until further assessment. Patient reports a cough. Patient denies shortness of breath or difficulty breathing. Patient denies measured and/or subjective temperature greater than 100.4F. Patient denies travel on a cruise ship or to a country the [facility] currently lists as an affected area. Patient denies contact with known and/or suspected case of COVID-19. Ebola Screen: Patient negative for fever greater than or equal to 101.5 degrees Fahrenheit, and additional compatible Ebola Virus Disease symptoms Patient denies exposure to infectious person. Patient denies travel to an Ebola-affected area in the 21 days before illness onset. No symptoms or risks identified at this time. Risk Assessment: Do you want to hurt yourself or someone else? Patient reports no desire to harm self or others. Onset of symptoms was August 15, 2019. 20:19 Method Of Arrival: Ambulatory ca1 20:19 Acuity: BOYD 3 ca1 21:55 Initial Sepsis Screen: Does the patient meet any 2 criteria? No. Patient's initial mg2 sepsis screen is negative. Does the patient have a suspected source of infection? No. Patient's initial sepsis screen is negative. Historical: - Allergies: 20:28 Aspirin; ca1 20:28 Lisinopril; ca1 20:28 zolpidem tartrate; ca1 - Home Meds: 21:40 Coumadin 8.5 mg Oral tab 1 tab nightly [Active]; prednisone 5 mg Oral tab 1 tab 2 times ca1 per day [Active]; Crestor 10 mg Oral tab 1 tab once daily [Active]; Cymbalta 60 mg Oral cpDR 1 cap once daily [Active]; Glucophage 1,000 mg Oral tab 1 tab 2 times per day [Active]; glimepiride 4 mg Oral tab 1 tab twice a day [Active]; Toprol XL 50 mg oral Tb24 1 tab once daily [Active]; abiraterone oral oral 4 tabs once daily [Active]; - PMHx: 20:28 CAD; Diabetes - NIDDM; High Cholesterol; Hypertension; neuropathy; RLE DVTs; ca1 08/15 00:20 Prostate Cancer; sg - Immunization history:: Adult Immunizations not up to date, Pneumococcal vaccine is not up to date, Flu vaccine is not up to date. - Social history:: Smoking status: Patient denies any tobacco usage or history of. Patient/guardian denies using alcohol, street drugs, The patient lives with family. - Family history:: not pertinent. Screenin/30 21:45 Abuse screen: Denies threats or abuse. Denies injuries from another. Nutritional mg2 screening: No deficits noted. Tuberculosis screening: No symptoms or risk factors identified. Fall Risk IV access (20 points). Assessment: 20:31 Reassessment: 's Name and Number: Marybel [phone]. Please call for updates. ca1 21:52 General: Appears in no apparent distress. comfortable, Behavior is calm, cooperative. mg2 Pain: Complains of pain in whole body. Neuro: Level of Consciousness is awake, alert, obeys commands, Oriented to person, place, time, situation. Cardiovascular: Capillary refill < 3 seconds Patient's skin is warm and dry. Respiratory: Reports shortness of breath cough that is non-productive, Airway is patent Respiratory effort is even, unlabored, Respiratory pattern is regular, symmetrical, Breath sounds are clear bilaterally. in mediastinum, right upper lobe, left upper lobe, right middle lobe, left lower lobe and right lower lobe. GI: No signs and/or symptoms were reported involving the gastrointestinal system. : No signs and/or symptoms were reported regarding the genitourinary system. EENT: No signs and/or symptoms were reported regarding the EENT system. Derm: Skin is intact, is healthy with good turgor, Skin is pink, warm \T\ dry. normal. Musculoskeletal: Circulation, motion, and sensation intact. Capillary refill < 3 seconds. 22:20 Reassessment: patient sent to ct scan via wheelchair. mg2 22:42 Reassessment: xray at bedside now. mg2 08/15 00:07 Reassessment: Patient appears in no apparent distress at this time. Patient and/or mg2 family updated on plan of care and expected duration. Pain level reassessed. Patient is alert, oriented x 3, equal unlabored respirations, skin warm/dry/pink. 00:46 Reassessment: Patient denies pain at this time. Patient states feeling better. mg2 08:37 Reassessment: Received PUI# from [facility] ([id number]) lab notified. iw Vital Signs: 08/14 20:19 BP 142 / 76; Pulse 112; Resp 20 S; Temp 99.7(O); Pulse Ox 90% on R/A; Weight 128.82 kg ca1 (R); Height 5 ft. 8 in. (172.72 cm) (R); 21:56 Pulse 98; Resp 18; Pulse Ox 99% on 2 lpm NC; mg2 21:56 BP 113 / 61; mg2 23:50 BP 110 / 61; Pulse 100; Resp 18; Pulse Ox 98% on 2 lpm NC; mg2 23:59 BP 110 / 92; Pulse 99; Resp 18; Temp 98.2(O); Pulse Ox 100% on 2 lpm NC; mg2 08/15 00:46 BP 111 / 92; Pulse 98; Resp 18; Temp 98.2; Pulse Ox 94% on R/A; mg2 08/14 20:19 Body Mass Index 43.18 (128.82 kg, 172.72 cm) ca1 ED Course: 08/14 20:00 Patient arrived in ED. fj1 20:27 Triage completed. ca1 20:28 Arm band placed on right wrist. ca1 20:29 Darleen Martinez MD is Attending Physician. ma2 20:34 Hung Steele RN is Primary Nurse. mg2 21:05 Issac Lerma PA is PHCP. jmm 21:10 Inserted saline lock: 20 gauge in right antecubital area, using aseptic technique. mg2 Blood collected. 21:48 No provider procedures requiring assistance completed. mg2 21:55 Patient has correct armband on for positive identification. mg2 22:50 CT Chest, Abdomen, Pelvis - W/Contrast In Process Unspecified. EDMS 22:56 XRAY Chest (1 view) In Process Unspecified. EDMS 08/15 00:36 Darek Rosales MD is Referral Physician. jm 00:47 IV discontinued, intact, bleeding controlled, No redness/swelling at site. Pressure mg2 dressing applied. Administered Medications: 08/14 21:11 Drug: Rocephin 1 grams Route: IV; Rate: calculated rate; Site: right antecubital; mg2 08/15 00:08 Follow up: Response: No adverse reaction; IV Status: Completed infusion mg2 08/14 21:41 CANCELLED (Physician Discretion): NS 0.9% (30 ml/kg) 30 ml/kg IV at bolus once; Sepsis mg2 Protocol 21:43 Drug: NS 0.9% 1000 ml Route: IV; Rate: 1000 ml; Site: right antecubital; mg2 08/15 00:08 Follow up: Response: No adverse reaction; IV Status: Completed infusion; IV Intake: mg2 1000ml Intake: 00:08 IV: 1000ml; Total: 1000ml. mg2 Outcome: 00:36 Discharge ordered [facility] 00:47 Discharged to home ambulatory. mg2 00:47 Condition: good 00:47 Discharge instructions given to patient, Instructed on discharge instructions, follow up and referral plans. medication usage, Demonstrated understanding of instructions, follow-up care, medications, Prescriptions given X 1. 00:47 Patient left the ED. mg2 Addendum: 08/17/2019 10:36 Addendum: Other Attempted to contact pt regarding negative COVID-19 swab results. d m5 14:07 Addendum: Addendum: Other Notified pt of negative COVID-19 swab results. Advised pt to d m5 remain in isolation until symptom free for 72 hours, continue to monitor symptoms and return to the ED if symptoms worsen. Signatures: Dispatcher [employer] EDMS Francy Umanzor RN RN dm5 Pradeep Ramires RN RN sg Mickail, Joel, PA [facility] Yolande Bey RN RN iw Alzahri, Mohammad, MD MD ma2 Hung Steele, RN RN mg2 Jayda James RN RN ca1 Mike Welch fj1 Corrections: (The following items were deleted from the chart) 08/14 21:41 21:11 NS 0.9% (30 ml/kg) 30 ml/kg IV at bolus in right antecubital mg2 mg2 08/16 14:21 14:07 Addendum: dm5 dm5
--- NOTE | 2019-08-16 00:38 | EDPHYS ---
Physician Documentation [facility] Name: Jonathan Lo Age: 73 yrs Sex: Male : 1945 Arrival Date: 08/15/2019 Time: 20:00 Bed 18 Private MD: ED Physician Darleen Martinez HPI: 08/14 20:35 This 73 yrs old Male presents to ER via Ambulatory with complaints of ma2 REFERRAL, POSSIBLE INFECTION (LABS ABNORMAL). 20:35 The patient or guardian reports cough. Onset: The symptoms/episode began/occurred ma2 gradually, 2 day(s) ago. Severity of symptoms: At their worst the symptoms were mild, in the emergency department the symptoms are unchanged. Associated signs and symptoms: Pertinent negatives: ear ache, fever, rhinorrhea, sore throat. The patient has not experienced similar symptoms in the past. Historical: - Allergies: 20:28 Aspirin; ca1 20:28 Lisinopril; ca1 20:28 zolpidem tartrate; ca1 - Home Meds: 21:40 Coumadin 8.5 mg Oral tab 1 tab nightly [Active]; prednisone 5 mg Oral tab 1 tab 2 times ca1 per day [Active]; Crestor 10 mg Oral tab 1 tab once daily [Active]; Cymbalta 60 mg Oral cpDR 1 cap once daily [Active]; Glucophage 1,000 mg Oral tab 1 tab 2 times per day [Active]; glimepiride 4 mg Oral tab 1 tab twice a day [Active]; Toprol XL 50 mg oral Tb24 1 tab once daily [Active]; abiraterone oral oral 4 tabs once daily [Active]; - PMHx: 20:28 CAD; Diabetes - NIDDM; High Cholesterol; Hypertension; neuropathy; RLE DVTs; ca1 08/15 00:20 Prostate Cancer; sg - Immunization history:: Adult Immunizations not up to date, Pneumococcal vaccine is not up to date, Flu vaccine is not up to date. - Social history:: Smoking status: Patient denies any tobacco usage or history of. Patient/guardian denies using alcohol, street drugs, The patient lives with family. - Family history:: not pertinent. ROS: 08/14 20:35 Constitutional: Negative for fever, chills, and weight loss, Cardiovascular: Negative ma2 for chest pain, palpitations, and edema, Respiratory: Negative for shortness of breath, cough, wheezing, and pleuritic chest pain. Abdomen/GI: Positive for abdominal pain, Negative for nausea and vomiting, vomiting, abdominal cramps, abdominal distension, anorexia, rectal bleeding. All other systems are negative. Exam: 20:35 Constitutional: This is a well developed, well nourished patient who is awake, alert, ma2 and in no acute distress. ENT: Nares patent. No nasal discharge, no septal abnormalities noted. Tympanic membranes are normal and external auditory canals are clear. Oropharynx with no redness, swelling, or masses, exudates, or evidence of obstruction, uvula midline. Mucous membranes moist. Neck: Trachea midline, no thyromegaly or masses palpated, and no cervical lymphadenopathy. Supple, full range of motion without nuchal rigidity, or vertebral point tenderness. No Meningismus. Chest/axilla: Normal chest wall appearance and motion. Nontender with no deformity. No lesions are appreciated. Cardiovascular: Regular rate and rhythm with a normal S1 and S2. No gallops, murmurs, or rubs. Normal PMI, no JVD. No pulse deficits. Respiratory: Lungs have equal breath sounds bilaterally, clear to auscultation and percussion. No rales, rhonchi or wheezes noted. No increased work of breathing, no retractions or nasal flaring. Abdomen/GI: Soft, non-tender, with normal bowel sounds. No distension or tympany. No guarding or rebound. No evidence of tenderness throughout. Back: No spinal tenderness. No costovertebral tenderness. Full range of motion. MS/ Extremity: Pulses equal, no cyanosis. Neurovascular intact. Full, normal range of motion. Neuro: Awake and alert, GCS 15, oriented to person, place, time, and situation. Cranial nerves II-XII grossly intact. Motor strength 5/5 in all extremities. Sensory grossly intact. Cerebellar exam normal. Normal gait. Vital Signs: 20:19 BP 142 / 76; Pulse 112; Resp 20 S; Temp 99.7(O); Pulse Ox 90% on R/A; Weight 128.82 kg ca1 (R); Height 5 ft. 8 in. (172.72 cm) (R); 21:56 Pulse 98; Resp 18; Pulse Ox 99% on 2 lpm NC; mg2 21:56 BP 113 / 61; mg2 23:50 BP 110 / 61; Pulse 100; Resp 18; Pulse Ox 98% on 2 lpm NC; mg2 23:59 BP 110 / 92; Pulse 99; Resp 18; Temp 98.2(O); Pulse Ox 100% on 2 lpm NC; mg2 08/15 00:46 BP 111 / 92; Pulse 98; Resp 18; Temp 98.2; Pulse Ox 94% on R/A; mg2 08/14 20:19 Body Mass Index 43.18 (128.82 kg, 172.72 cm) ca1 MDM: 08/14 20:29 Patient medically screened. ma2 20:35 Differential Diagnosis: Bronchitis Influenza Upper Respiratory Infection Sinusitis ma2 Pharyngitis. 08/15 00:28 Data reviewed: vital signs, nurses notes. Counseling: I had a detailed discussion with feng the patient and/or guardian regarding: the historical points, exam findings, and any diagnostic results supporting the discharge/admit diagnosis, lab results, radiology results, the need for outpatient follow up, to return to the emergency department if symptoms worsen or persist or if there are any questions or concerns that arise at home. ED course: I discussed the patient with Dr. Rosales whom recommends outpatient follow up. I also discussed findings with the patient whom would prefer to follow up out patient as well. Patient is alert and non toxic in appearance in the ED. Patient is given strict return precautions. Patient understood and agrees with the plan of care. . 08/14 20:35 Order name: Amylase, Serum 08/14 20:35 Order name: Basic Metabolic Panel; Complete Time: 22:01 08/14 20:35 Order name: Blood Culture Adult (2) 2 08/14 20:35 Order name: CBC with Diff; Complete Time: 22:55 ca08/14 20:35 Order name: Ckmb; Complete Time: 22:01 08/14 20:35 Order name: CPK; Complete Time: 22:01 08/14 20:35 Order name: Lactate; Complete Time: 22:01 08/14 20:35 Order name: LFT's; Complete Time: 22:01 ca08/14 20:35 Order name: Lipase; Complete Time: 22:01 08/14 20:35 Order name: Procalcitonin; Complete Time: 22:32 ma2 08/14 20:35 Order name: Protime (+inr); Complete Time: 21:22 ma2 08/14 20:35 Order name: Ptt, Activated; Complete Time: 21:22 ma2 08/14 20:35 Order name: Troponin (emerg Dept Use Only); Complete Time: 22:01 ma2 08/14 20:35 Order name: Urine Microscopic Only; Complete Time: 22:55 ma2 08/14 20:35 Order name: Accucheck; Complete Time: 21:12 ma2 08/14 20:35 Order name: Flu; Complete Time: 22:01 ma2 08/14 20:36 Order name: Amylase Level; Complete Time: 22:01 EDMS 08/14 21:09 Order name: Manual Differential; Complete Time: 22:55 EDMS 08/14 21:20 Order name: Glucose, Ancillary Testing; Complete Time: 21:22 EDMS 08/14 21:22 Order name: COVID-19 [facility] 08/14 22:01 Order name: CT Chest, Abdomen, Pelvis - W/Contrast [facility] 08/14 22:10 Order name: Urine Dipstick--Ancillary (enter results); Complete Time: 22:55 2 08/14 22:49 Order name: XRAY Chest (1 view); Complete Time: 23:14 mg2 08/15 00:39 Order name: Lactate Sepsis 2 HR Follow-up; Complete Time: 00:40 EDMS 08/14 20:35 Order name: Cardiac monitoring; Complete Time: 21:14 ca2 08/14 20:35 Order name: EKG - Nurse/Tech; Complete Time: 21:14 ca2 08/14 20:35 Order name: IV Saline Lock - Large Bore; Complete Time: 21:15 ca2 08/14 20:35 Order name: Labs collected and sent; Complete Time: 21:15 ca2 08/14 20:35 Order name: O2 Per Protocol; Complete Time: 21:15 ca2 08/14 20:35 Order name: O2 Sat Monitoring; Complete Time: 21:15 ca2 08/14 20:35 Order name: Urine Dipstick-Ancillary (obtain specimen); Complete Time: 22:00 ma2 Administered Medications: 08/14 21:11 Drug: Rocephin 1 grams Route: IV; Rate: calculated rate; Site: right antecubital; mg2 08/15 00:08 Follow up: Response: No adverse reaction; IV Status: Completed infusion mg2 08/14 21:41 CANCELLED (Physician Discretion): NS 0.9% (30 ml/kg) 30 ml/kg IV at bolus once; Sepsis mg2 Protocol 21:43 Drug: NS 0.9% 1000 ml Route: IV; Rate: 1000 ml; Site: right antecubital; mg2 08/15 00:08 Follow up: Response: No adverse reaction; IV Status: Completed infusion; IV Intake: mg2 1000ml Disposition: 10:38 Co-signature as Attending Physician, Darleen Martinez MD. ma2 Disposition: 08/16/19 00:36 Discharged to Home. Impression: Cystitis. - Condition is Stable. - Discharge Instructions: Urinary Tract Infection, Adult. - Prescriptions for cefpodoxime 200 mg Oral Tablet - take 1 tablet by ORAL route every 12 hours with food; 20 tablet. - Medication Reconciliation Form, Thank You Letter, Antibiotic Education, Prescription Opioid Use form. - Follow up: Darek Rosales MD; When: 1 - 2 days; Reason: Recheck today's complaints, Continuance of care, Re-evaluation by your physician. Signatures: Dispatcher [employer] EDPradeep Ndiaye RN RN Issac Lerma PA PA jmm Alzahri, Mohammad, MD MD ma2 Hung Steele, VALENTIN HANSON mg2 Jayda James RN RN ca1 Corrections: (The following items were deleted from the chart) 08/14 21:00 20:37 CORONAVIRUS+MR.LAB.BRZ ordered. EDMS EDMS 21:26 20:37 Chest Single View+RAD.RAD.BRZ ordered. EDMS EDMS 21:41 20:35 NS 0.9% (30 ml/kg) 30 ml/kg IV at bolus once; Sepsis Protocol ordered. ma2 mg2 : 21:12 NS 0.9% (30 ml/kg) 30 ml/kg IV at bolus once; Sepsis Protocol given. mg2 mg2 : 21:41 NS 0.9% (30 ml/kg) 30 ml/kg IV at bolus once; Sepsis Protocol ordered. mg2 mg2 08/15 00:14 08/14 23:44 LACTATE+C.LAB.BRZ ordered. EDMS EDMS 08/15 00:47 00:36 08/16/2019 00:36 Discharged to Home. Impression: Cystitis. Condition is Stable. mg2 Forms are Medication Reconciliation Form, Thank You Letter, Antibiotic Education, Prescription Opioid Use. Follow up: Darek Rosales; When: 1 - 2 days; Reason: Recheck today's complaints, Continuance of care, Re-evaluation by your physician. feng
[2019-08-16 01:20] VITALS: TEMP 98.2
[2019-08-16 01:21] VITALS: BP 111/92; O2SAT 94
--- NOTE | 2019-08-16 10:28 | EKG ---
Test Date: 2019-08-15 Test Time: 21:02:51 Biochemical Engineer: MEASUREMENT RESULTS: Intervals: Rate: 102 MD: 224 QRSD: 124 QT: 354 QTc: 461 [place]: P: 66 MD: 224 QRS: 97 T: -4 INTERPRETIVE STATEMENTS: Sinus tachycardia with 1st degree AV block with premature atrial complexes Rightward axis Cannot rule out Anterior infarct, age undetermined T wave abnormality, consider inferior ischemia Abnormal ECG Compared to ECG 07/30/2018 15:00:15 Atrial premature complex(es) now present First degree AV block now present Right-axis deviation now present T-wave abnormality now present Possible ischemia now present Sinus rhythm no longer present Myocardial infarct finding still present Electronically Signed On 08-16-19 10:27:46 CDT by Charlie Bernardo
--- NOTE | 2019-08-16 12:37 | RAD REPORT ---
EXAM DESCRIPTION: CT - Chest Abdomen Pelvis W Cont - 08/16/2019 2:58 am CLINICAL HISTORY: 73 years Male fever, lower abdominal pain COMPARISON: CT abdomen and pelvis study from 11/03/2018. TECHNIQUE: Contiguous axial images obtained through the chest, abdomen and pelvis following IV contr ast. Reformatted images obtained. This exam was performed according to our department optimization program which includes automated exp osure control, adjustment of the mA and/or kv according to patient size and/or use of iterative recon struction technique. FINDINGS: There are scattered mildly prominent lymph nodes in the mediastinum. There are changes fro m previous sternotomy. Coronary artery calcifications. Atherosclerotic calcifications in the thoracic aorta. There is fairly extensive calcific pleural plaquing. There is mild scarring/atelectasis in the lungs. There are interstitial changes in the lungs which are most likely chronic. Changes from edema or inf ectious process are not excluded. No consolidating infiltrates or pleural effusions. No pneumothora x. The liver appears unremarkable. The spleen and pancreas appear unremarkable. 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 There is mild perinephric stranding likely chronic. There is a nonobstructing right renal calculus. N o hydronephrosis or ureteral calculi. The gallbladder is visualized. Atherosclerotic calcifications. No aneurysmal dilatation of the aorta. No bowel obstruction. The appendix appears unremarkable. No free pelvic fluid. There is wall thickening in the urinary bladder with surrounding inflammatory changes suggesting cyst itis. Clinical and laboratory correlation is recommended. There is a rounded fluid collection in the left lower abdomen measuring approximate 7 cm in diameter that is similar in size compared to the previous study. This likely represents a seroma. There may be slightly increased wall thickening and inflammatory change around this lesion when compared to the p rior study. This could be secondary to the adjacent cystitis. An infected seroma is less likely but n ot totally excluded. Small fat-containing left inguinal hernia. Tiny fat-containing umbilical hernia. Bilateral pars defects at L5-S1. Degenerative changes in the spine. IMPRESSION: There is extensive calcific pleural plaquing. Interstitial changes in the lungs likely chronic. Changes from edema or an infectious process are not excluded. There is wall thickening in the urinary bladder with surrounding inflammatory changes suggesting cyst itis. Clinical and laboratory correlation is recommended. There is a rounded fluid collection in the left lower abdomen measuring approximately 7 cm in diamete r which is similar in size compared to the previous study. This likely represents a seroma. There may be slightly increased wall thickening and inflammatory change around this lesion when compared to th e prior study. This is likely from the adjacent cystitis. An infected seroma is less likely but not t otally excluded on this study. Other findings as above. Electronically signed by: Arnold Dowell MD 08/15/2019 11:54 PM CDT Due to temporary technical issues with the PACS/Fluency reporting system, reports are being signed by the in house radiologist as a courtesy to ensure prompt reporting. The interpreting radiologist is f ericaly responsible for the content of the report.
== END 2019-08-16 00:47 | disposition home or self-care (01) ==
LOC: ER 19:54
DX: N30.90 Cystitis, unspecified without hematuria (principal); I10 Essential (primary) hypertension; E11.9 Type 2 diabetes mellitus without complications; E78.00 Pure hypercholesterolemia, unspecified; Z79.01 Long term (current) use of anticoagulants; Z03.818 Encounter for observation for suspected exposure to other biological agents ruled out; Z88.6 Allergy status to analgesic agent; Z88.8 Allergy status to other drugs, medicaments and biological substances; Z85.46 Personal history of malignant neoplasm of prostate; Z86.718 Personal history of other venous thrombosis and embolism
CPT/HCPCS: 96365; 93005; 87040 ×2; 85025; 80048; 36415; 82150; 82550; 85610; 82947; 80076; 83605 ×2; 85730; 84484; 82553; 83690; 84145; 87804 ×2; 71260; 74177; 71045; 99284; 96366; U0001 ×2; Q9967; J0696; J7030; 81003; 81015

== ENCOUNTER 2020-10-14 11:46 | Emergency (ER) | payer OTHER, BC ==
--- OUTSIDE RECORDS SUMMARY | 2020-10-14 11:49 | XMS REPORT | Continuity of Care Document ---
:1945 Author Organization [facility] t Address [address] [place] [address] Care Team Providers Name Role Phone Sharpless Primary Care Physician Dino GEAR LAPPER Attending Clinician Provider, Urgent Care Attending Clinician Unavailable Gary Peralta Attending Clinician Problems Condition Condition Condition Status Onset Resolution Last Treating Co mments Source Name Details Category Date Date Treatment Clinician Date Prostate Prostate Disease Active [place] [facility] cancer cancer 08-23 [facility]: st 00 Kidney Kidney Disease Active [place] stones stones 06-25 [facility]: st 00 Elevated Elevated Disease Active [place] [facility] PSA PSA 06-25 [facility] 00 Abscess Abscess Disease Active 2015-[address] [facility]20 [facility] Pseudoaneu Pseudoaneu Disease Active 2015-[address] rysm of rysm of 05-20 [facility] - femoral femoral 00:00: Medical artery artery 00 Center Groin Groin Disease Active 2015-[address] [facility] [address] hematoma, hematoma, 05-20 [facility] - sequela sequela 00:00: Medical 00 Center Wound Wound Disease Active 2015-[address] [facility] infection infection 05-20 [facility] - 00:[facility]: [facility] 00 Center Blood loss Blood loss Disease Active [facility] anemia anemia 01-22 [facility] - 00:[facility]: Medical 00 Center Aortic Problem Active 2019-11-26 Memor ia valve 11-17 00:46:19 l disorder Aortic 00:00: Saravanan n (disorder) valve 00 disorder (disorder) Active 11/17/2013 Problem 11/26/2019 [facility] Essential Problem Active 2019-11-26 Me moria hypertensi 11-17 00:46:19 l on 00:00: Jose (disorder) Essential 00 hypertensi on (disorder) Active 11/17/2013 Problem 11/26/2019 [facility] Hyperlipid Problem Active 2019-11-26 M emoria emia 11-17 00:46:19 l (disorder) 00:00: Saravan[place] n Hyperlipid 00 emia (disorder) Active 11/17/2013 Problem 11/26/2019 [facility] Idiopathic Problem Active 2019-11-26 M emoria peripheral 11-17 00:46:19 l neuropathy 00:00: Saravanan love (disorder) Idiopathic 00 peripheral neuropathy (disorder) Active 11/17/2013 Problem 11/26/2019 [facility] Type II Problem Active 2019-11-26 Carlos haroldo diabetes 11-17 00:46:19 l mellitus Type II 00:00: Lashell nn without diabetes 00 complicati mellitus on without (disorder) complicati on (disorder) Active 11/17/2013 Problem 11/26/2019 [facility] S/P AVR S/P AVR Disease Active [facility] (aortic (aortic [facility] - valve valve Medical replacemen replacemen Ce nter t) t) CPAP CPAP Disease Active [facility] (continuou (continuou Marnie kes - s positive s positive Me dical airway airway Center pressure) pressure) dependence dependence Obstructiv Obstructiv Disease Active [facility] e sleep e sleep [facility] apnea on apnea on Medica l CPAP CPAP Center Hypertensi Hypertensi Disease Active [facility] Carotid Carotid Disease Active Overview: [facility] artery artery stent [facility] - disease disease left Medical carotid Center artery Diabetes Diabetes Disease Active [facility] mellitus mellitus [facility] - type 2, type 2, Medical noninsulin noninsulin Ce nter dependent dependent Allergies, Adverse Reactions, Alerts Allergy Allergy Status Severity Reaction(s) Onset Inactive Treating Comm ents Source Name Type Date Date Clinician Zolpidem Propensi Active [place] ty to 2-08 [facility] adverse 00:00: st reaction 00 s to drug Sitaglip Propensi Active [place] ty to 2-08 [facility] adverse 00:00: st reaction 00 s to drug Lisinopr Propensi Active [place] ty to 2-08 [facility] adverse 00:00: st reaction 00 s to drug Zolpidem Drug Active "makes me [facility] Intolera 01-22 loopy" [facility] 00 [facility] Lisinopr Drug Active Pancreati [facility] il Allergy 01-22 tis kes - 00:00: Medical 00 [facility] No Known No Known Active Memori a Medicati Medicati l on on Jose Ortiz s s Family History Family Member Diagnosis Comments Start Date Stop Date Source Natural mother Heart disease [facility] Natural mother Diabetes [facility] Natural sister Cancer [facility] Natural sister Heart disease [facility] Natural brother Cancer [facility] Natural brother Heart disease [facility] Natural father Diabetes [facility] Natural father Heart disease [facility] Social History Social Habit Start Date Stop Date Quantity Comments Source History of tobacco Chews Tobacco [place] [facility] use History [facility] Meth odist Alcohol Std Drinks History [facility] od[facility] Alcohol Binge Tobacco use and 2018-10-20 2018-10-20 Former user [facility] exposure 00:00:00 00:00:00 Alcohol intake 2018-10-20 2018-10-20 Current [facility] thodist 00:00:00 00:00:00 non-drinker of alcohol (finding) Cigarettes smoked 2018-10-20 2018-10-20 [facility] current (pack per 00:00:00 00:00:00 day) - Reported Cigarette 2018-10-20 2018-10-20 Kenneth Method ist pack-years 00:00:00 00:00:00 History SDOH 2018-10-18 2018-10-18 1 [facility] Meth odist Alcohol Frequency 00:00:00 00:00:00 Tobacco Comment 2018-06-25 2018-06-25 quit 1994 Kenneth Raymond ethodist 00:00:00 00:00:00 [birth year] Kenneth Raymond ethodist 00:00:00 00:00:00 Smoking Status Start Date Stop Date Source Former smoker 2018-10-20 00:00:00 2018-10-20 00:00:00 [place] [facility] Never smoker [facility] Medications Ordered Filled Start Stop Current Ordering Indication Dosage Frequency Signature Comments Components Source Medication Medication Date Date Medication? Clinician (SIG) Name Name Prolia 2020-0 Yes SUB-Q, Memoria 11-22 q6mo, 0 l 18:50: Refill(s) Jose 0.375 ML 2020-0 Yes SUB-Q, Memoria Leuprolide 11-22 q3mo, 0 l Acetate 60 18:50: Refill(s) He rmann MG/ML 00 Prefilled Syringe [Eligard] Prednisone 2019-0 Yes 5 mg, PO, Me moria 11-22 BID, l 18:27: Quantity Jose 00 sufficient , 0 Refill(s) Vitamin D3 2020-0 Yes 5,000 Memori a 5000 intl 11-22 IntlUnit = l units oral 18:27: 1 cap, PO, H ermann capsule 00 Daily, # 30 cap, 1 Refill(s) abiraterone 2020-0 Yes 1,000 mg, M emoria - PO, Daily, l 18:27: 0 Jose 00 Refill(s) Coumadin 2020-0 Yes 8 mg, PO, Carlos haroldo - Daily, 0 l 18:27: Refill(s) Jose 00 DULoxetine 2018- Yes = 1 cap, Mem oria 60 mg oral 7-03 PO, Daily, l delayed 18:27: # 90 cap, Lashell nn release 21 2 capsule Refill(s), Pharmacy: [facility] rosuvastati Yes 10mg Take 10 mg [place] n (CRESTOR) 6-04 by mouth. Met hodi 10 MG 11:48: st tablet DULoxetine Yes 60mg Take 60 mg [place] (CYMBALTA) 6-04 by mouth. Meth reinier 60 MG 11:48: st capsule metFORMIN 2019-0 Yes 1000mg Take 1,000 [place] (GLUCOPHAGE 6-04 mg by Methodi ) 1,000 mg 11:48: mouth. st tablet 28 metoprolol Yes 50mg QD Take 50 mg [place] succinate 6-04 by mouth Method i XL 11:48: daily. st (TOPROL-XL) 28 50 mg 24 hr tablet enoxaparin Yes Kenneth (LOVENOX) 5-15 [facility] 120 mg/0.8 00:00: st mL syringe 00 warfarin Yes Patient [place] (COUMADIN) 5-13 takes 7mg Meth reinier 2 MG tablet 00:00: st 00 warfarin Yes Patient [place] (COUMADIN) 5-13 takes 7mg Meth reinier 5 MG tablet 00:00: st 00 sodium Yes 1{bottl Insert 133 [place] phosphates 3-06 e} mL (1 [facility] (ENEMA) 00:00: Bottle st 19-7 00 total) gram/118 mL into the enema rectum once as needed (use 2 hrs prior to procedure) for up to 1 dose. tamsulosin Yes Kenneth (FLOMAX) 1-31 [facility] 0.4 mg 00:00: st capsule 00 DULoxetine No = 1 cap, Mem oria 60 mg oral 1-02 PO, Daily, l delayed 15:04: # 90 Jose release 10 unknown capsule unit, Refill(s) 2, Pharmacy: [facility] glimepiride 2017-05 Yes [place] (AMARYL) 4 1-14 [facility] MG tablet 00:00: st 00 enoxaparin Yes Inject [facility] (LOVENOX) 9-27 subcutaneo [facility] - 150 mg/mL 07:19: usly every Me dical injection 48 12 Center (twelve) hours. canaglifloz Yes 100mg QD Take [address] in 9-27 mg by [facility] - (INVOKANA) 07:19: mouth Medica l 100 mg 24 daily. Center tablet glimepiride Yes 4mg Q.5D Take [address] (AMARYL) 4 9-27 by mouth 2 Zen es - MG tablet 07:19: (two) Medical 05 times Center daily. rosuvastati Yes 10mg QD Take [address] [facility] n (CRESTOR) 9-27 by mouth [facility] - 10 MG 07:19: daily. Medical tablet 05 [facility] DULoxetine Yes 60mg QD Take [address] (CYMBALTA) 9-27 by mouth [facility] - 60 MG 07:19: daily. Medical capsule 05 [facility] tamsulosin Yes .4mg QD Take 0.[address] [facility] (FLOMAX) 9-27 mg by [facility] - 0.4 mg Cp24 07:19: mouth Medic al 24 hr 05 daily. Center capsule metFORMIN Yes 1000mg Take 1,[address] [facility] (GLUCOPHAGE 9-27 mg by [facility] - ) 1000 MG 07:19: mouth 2 Medic al tablet 05 (two) Center times daily with breakfast and dinner. finasteride Yes 5mg QD Take [address] (PROSCAR) 5 9-27 by mouth [facility] - mg tablet 07:19: daily. Medica l 05 [facility] warfarin Yes 6.5mg QD Take 6.[address] [facility] (COUMADIN) 9-27 mg by [facility] - 4 MG tablet 07:19: mouth Medic al 05 daily . [facility] SITagliptin Yes 100mg QD Take [address] (JANUVIA) 9-27 mg by [facility] - 100 MG 07:19: mouth Medical tablet 04 daily. [facility] metoprolol Yes 100mg QD Take [address] (TOPROL-XL) 9-27 mg by [facility] - 100 MG 24 07:19: mouth Medical hr tablet 04 daily. Center Vital Signs Vital Name Observation Time Observation Value Comments Source Systolic (mm Hg) 2019-11-23 18:15:00 Carlos Garcia Diastolic (mm Hg) 2019-11-23 18:15:00 Jovi Garcia Heart Rate 2019-11-23 18:15:00 [facility] Respitory Rate 2019-11-23 18:15:00 Carolee Liriano Temperature Oral (F) 2019-11-23 18:15:00 96.1 F [facility] Height 2019-11-23 18:15:00 172.72 cm [facility] Weight 2019-11-23 18:15:00 [facility] BMI Calculated 2019-11-23 18:15:00 Carolee Liriano Weight 2018-11-17 18:12:00 [facility] Jose Height 2018-11-17 18:12:00 170.18 cm [facility] BMI Calculated 2018-11-17 18:12:00 Carolee Liriano Heart Rate 2018-11-17 18:12:00 [facility] Jose Respitory Rate 2018-11-17 18:12:00 Memmatthew al [place] Systolic (mm Hg) 2018-11-17 18:12:00 Carlos trip [place] Diastolic (mm Hg) 2018-11-17 18:12:00 Mem orial [place] Procedures This patient has no known procedures. Plan of Care Planned Activity Planned Date Details Comments Source Future Scheduled 2020-12-16 INFLUENZA VACCINE [place] [facility] Test 00:00:00 [code = INFLUENZA VACCINE] Future Scheduled 2010 65+ PNEUMOCOCCAL [place] [facility] Test 00:00:00 VACCINE (1 of 1 - PPSV23) [code = 65+ PNEUMOCOCCAL VACCINE (1 of 1 - PPSV23)] Future Scheduled 1995-08-24 COLONOSCOPY SCREENING [place] [facility] Test 00:00:00 [code = COLONOSCOPY SCREENING] Future Scheduled 1995-08-24 SHINGLES VACCINES (#1) [place] [facility] Test 00:00:00 [code = SHINGLES VACCINES (#1)] Future Scheduled 1963-08-24 Hepatitis C screening [place] [facility] Test 00:00:00 (procedure) [code = 808780667] Future Scheduled 1957 COVID-19 VACCINE (1) [place] [facility] Test 00:00:00 [code = COVID-19 VACCINE (1)] Encounters Start End Encounter Admission Attending Care Care Encounter Source Date/Time Date/Time Type Type Clinicians Facility Department ID 2020-10-14 2020-10-14 Telephone [place], [facility] [id number] 00:00:00 00:00:00 [facility] [id number] [place] [id number] Royce [id number] nal [address] 2020-06-16 2020-06-16 Urgent Provider, RUST [id number] 16:07:12 16:55:48 [facility] [id number] Care [place] [id number] [facility] [phone] nal [address] 2019-11-23 2019-11-23 Outpatient SURJIT Peralta [id number] 13:00:00 23:59:59 Noe 03 Gary 2019-11-23 2019-11-23 Outpatient SURJIT Peralta [id number] 13:00:00 13:00:00 Noe 02 Gary 2018-11-17 2018-11-17 Outpatient SURJIT Peralta [id number] 13:00:00 23:59:59 Noe 01 Gary Results Test Description Test Time Test Comments Results Result Sourc e Comments CT, CHEST, WITHOUT 2017-04-28 FINAL REPORT PATIENT CONTRAST 11:35:00 ID: [id number] CT scan of the chest. CLINICAL HISTORY: [...] No suspicious pulmonary nodules.3. Extensive atherosclerosis. Signed: Dennis Agosto MDRep[place] Verified Date/Time: 04/28/2017 11:35:10 Reading Location: [address] Radiology Reading Room
[2020-10-14] MEDS ORDERED: HYDROCODONE/APAP 10/325 TAB ONE (13:09)
--- NOTE | 2020-10-14 13:43 | RAD REPORT ---
EXAM DESCRIPTION: CT - Thorax Wo Con - 10/14/2020 1:32 pm CLINICAL HISTORY: fall, chest pain COMPARISON: Chest For Pe Angio dated 03/30/2020 TECHNIQUE: Axial 5 mm thick images of the chest were obtained without IV contrast. All CT scans are performed using dose optimization technique as appropriate and may include automated exposure control or mA/KV adjustment according to patient size. FINDINGS: No pulmonary contusion, mass, infiltrate or acute finding of the lung parenchyma. Patient has extensive calcified pleural plaquing. No associated soft tissue mass is seen. No pleural thickeni ng or pleural effusion. No pneumothorax. Multiple small mediastinal lymph nodes are present not significantly different from the March comp arison. Aortic calcifications are present without displacement. No aortic aneurysm. Dense coronary ar ute calcifications are seen. Pulmonary arteries are normal in size. No cardiomegaly or pericardial e ffusion identified. Assessment is limited in the absence of IV contrast. No chest wall mass or abnormal axillary lymphadenopathy. No displaced rib fracture or gross fracture of rib identifiable. There are subtle cortical changes of the fifth and sixth ribs near the costochondral junction. IMPRESSION: Probable nondisplaced, incomplete fractures of the right fifth and sixth ribs at the cos tochondral junction anteriorly. No other rib fractures confirmed. Extensive calcified pleural plaquing with no pneumothorax, pulmonary contusion or other post trauma f inding.
--- NOTE | 2020-10-14 14:48 | ER ---
Nurse's Notes [facility] Name: Jonathan Lo Age: 75 yrs Sex: Male : 1945 Arrival Date: 10/14/2020 Time: 11:49 Bed 23 Private MD: Diagnosis: Multiple fractures of ribs Presentation: 10/14 11:57 Coronavirus screen: Client denies travel out of the [place] in the last 14 days. At this ll1 time, the client does not indicate any symptoms associated with coronavirus-19. Ebola Screen: Patient denies travel to an Ebola-affected area in the 21 days before illness onset. Initial Sepsis Screen: Does the patient meet any 2 criteria? RR > 20 per min. No. Patient's initial sepsis screen is negative. Does the patient have a suspected source of infection? Yes: Bone or joint infection. Risk Assessment: Do you want to hurt yourself or someone else? Patient reports no desire to harm self or others. Onset of symptoms was October 11, 2020. 11:57 Method Of Arrival: Wheelchair ll1 11:57 Acuity: BOYD 3 ll1 12:00 Chief complaint: Patient states: Fell coming out of the vet on . R leg and R ll1 arm abrasion. R sided CP, thinks he broke a rib. No head injury or LOC. Takes Coumadin daily. Historical: - Allergies: 11:59 Aspirin; ll1 11:59 Lisinopril; ll1 11:59 zolpidem tartrate; ll1 - PMHx: 11:59 CAD; High Cholesterol; neuropathy; Hypertension; Diabetes - NIDDM; Prostate Cancer; RLE ll1 DVTs; - PSHx: 11:59 CA-prostate, prostatectomy; aortic stenosis, valve replaced; ll1 - Immunization history:: Client reports receiving the 2nd dose of the Covid vaccine, Pneumococcal vaccine is up to date, Flu vaccine is up to date. - Social history:: Smoking status: Patient denies any tobacco usage or history of. Screenin:34 Abuse screen: Denies threats or abuse. Denies injuries from another. Nutritional zb screening: No deficits noted. Tuberculosis screening: No symptoms or risk factors identified. Fall Risk Fall in past 12 months (25 points). No secondary diagnosis (0 pts). IV access (20 points). Ambulatory Aid- Crutches/Cane/Walker (15 pts). Gait- Normal/Bed Rest/Wheelchair (0 pts) Mental Status- Oriented to own ability (0 pts). Total Gallardo Fall Scale indicates Low Risk Score (25-44 pts). Fall prevention measures have been instituted. Placed close to Nursing Station Frequent Obs/Assesments occuring Family Present and informed to notify staff if they need to leave bedside As available Patient and Family Educated on Fall Prevention Program and strategies. Assessment: 12:00 General: Appears in no apparent distress. uncomfortable, Behavior is calm, cooperative, zb appropriate for age. Pain: Complains of pain in anterior aspect of right upper chest and right breast Pain does not radiate. Pain currently is 4 out of 10 on a pain scale. at worst was 10 out of 10 on a pain scale. Quality of pain is described as sharp, tender. Neuro: Level of Consciousness is awake, alert, obeys commands, Oriented to person, place, time, situation. Cardiovascular: Reports chest pain, shortness of breath, Heart tones S1 S2 S3 Murmur present Patient's skin is warm and dry. Respiratory: Reports shortness of breath at rest on exertion pain with cough pain with movement pain with respiration Airway is patent Respiratory effort is shallow, Respiratory pattern is tachypnea Breath sounds are diminished bilaterally. the patient has moderate shortness of breath. GI: Abdomen is round non-distended, obese. Derm: Skin is intact, is thin. Musculoskeletal: Circulation, motion, and sensation intact. Range of motion: intact in all extremities. Injury Description: Abrasion sustained to right huitron is scabbed. 13:00 Reassessment: Patient appears in no apparent distress at this time. Patient and/or zb family updated on plan of care and expected duration. Pain level reassessed. Patient is alert, oriented x 3, equal unlabored respirations, skin warm/dry/pink. remain at bedside. patient remains on 2L oxygen. 14:23 Reassessment: Patient appears in no apparent distress at this time. Patient and/or zb family updated on plan of care and expected duration. Pain level reassessed. Patient is alert, oriented x 3, equal unlabored respirations, skin warm/dry/pink. remains at bedside. no acute distress at this time. will continue to monitor. 15:07 Reassessment: d/c instructions given. IS teaching and demonstration completed. patient zb and ambulated out. Vital Signs: 11:57 BP 110 / 78; Pulse 71; Resp 22; Temp 97.5; Pulse Ox 88% on R/A; Weight 124.74 kg; ll1 Height 5 ft. 8 in. (172.72 cm); Pain 9/10; 12:33 BP 129 / 58; Pulse 68; Resp 23; Pulse Ox 98% on 2 lpm NC; zb 13:00 BP 113 / 64; Pulse 72; Resp 20; Pulse Ox 94% on 2 lpm NC; zb 14:00 BP 119 / 84; Pulse 71; Resp 20; Pulse Ox 93% on 2 lpm NC; zb 11:57 Body Mass Index 41.81 (124.74 kg, 172.72 cm) ll1 ED Course: 11:49 Patient arrived in ED. bp1 11:58 Triage completed. ll1 12:00 Arm band placed on Patient placed in an exam room, on a stretcher. ll1 12:00 Patient has correct armband on for positive identification. Bed in low position. Call zb light in reach. Adult w/ patient. school bus monitor on. Pulse ox on. NIBP on. Door closed. Noise minimized. 12:06 Issac Lerma PA is PHCP. [facility] 12:06 Benton Reina MD is Attending Physician. jm 12:21 Birgit Meier, VALENTIN is Primary Nurse. zb 13:31 CT Chest Wo Con In Process Unspecified. EDMS 15:07 INCENTIVE SPIROMETRY Sent. zb 15:08 No provider procedures requiring assistance completed. Patient did not have IV access zb during this emergency room visit. Administered Medications: 12:30 Drug: [place] (HYDROcodone-acetaminophen) 10 mg-325 mg 1 tabs {Note: RASS +1.} Route: PO; zb 13:30 Follow up: Response: No adverse reaction; Pain is decreased; RASS: Alert and Calm (0) zb Outcome: 14:47 Discharge ordered by . jmm 15:08 Discharged to home ambulatory, with family. zb 15:08 Condition: stable 15:08 Discharge instructions given to patient, family, Instructed on discharge instructions, follow up and referral plans. medication usage, IS Demonstrated understanding of instructions, follow-up care, medications, Prescriptions given X 1. 15:09 Patient left the ED. dayanna Signatures: Dispatcher [employer] EDMS Issac Lerma PA PA jmm Lewis, Lynsay RN RN ll1 Cori Bellamy Zipporah, RN RN zb
--- NOTE | 2020-10-14 14:49 | EDPHYS ---
Physician Documentation [facility] Name: Jonathan Lo Age: 75 yrs Sex: Male : 1945 Arrival Date: 10/14/2020 Time: 11:49 Bed 23 Private MD: ED Physician Benton Reina HPI: 10/14 12:16 This 75 yrs old Male presents to ER via Wheelchair with complaints of Fall jmm Injury, Chest Wall Injury. 12:16 Details of fall: The patient fell from an upright position, while walking. Onset: The jmm symptoms/episode began/occurred acutely, just prior to arrival. The patient has not experienced similar symptoms in the past. This is a 75 year old male with a history of CAD, HTN that presents to the ED with complaints of right anterior chest pain which occurred after a fall this past . Complains of increased pain on inspiration today. Denies hitting his head or other injury. . Historical: - Allergies: 11:59 Aspirin; ll1 11:59 Lisinopril; ll1 11:59 zolpidem tartrate; ll1 - PMHx: 11:59 CAD; High Cholesterol; neuropathy; Hypertension; Diabetes - NIDDM; Prostate Cancer; RLE ll1 DVTs; - PSHx: 11:59 CA-prostate, prostatectomy; aortic stenosis, valve replaced; ll1 - Immunization history:: Client reports receiving the 2nd dose of the Covid vaccine, Pneumococcal vaccine is up to date, Flu vaccine is up to date. - Social history:: Smoking status: Patient denies any tobacco usage or history of. ROS: 12:16 Constitutional: Negative for fever, chills, and weight loss. jmm 12:16 Respiratory: Negative for shortness of breath, cough, wheezing, and pleuritic chest pain. 12:16 Cardiovascular: Positive for chest pain, with movement. 12:16 All other systems are negative. Exam: 12:16 Constitutional: This is a well developed, well nourished patient who is awake, alert, jmm and in no acute distress. Head/Face: atraumatic. Eyes: EOMI, no conjunctival erythema appreciated ENT: Moist Mucus Membranes Neck: Trachea midline, Supple Cardiovascular: Regular rate and rhythm. No edema appreciated Respiratory: Normal respirations, no respiratory distress appreciated Abdomen/GI: Non distended, soft Back: Normal ROM 12:16 Skin: General appearance color normal MS/ Extremity: Moves all extremities, no obvious deformities appreciated, no edema noted to the lower extremities Neuro: Awake and alert, normal gait Psych: Behavior is normal, Mood is normal, Patient is cooperative and pleasant 12:16 Chest/axilla: Palpation: tenderness, that is moderate, of the anterior aspect of right upper chest. Vital Signs: 11:57 BP 110 / 78; Pulse 71; Resp 22; Temp 97.5; Pulse Ox 88% on R/A; Weight 124.74 kg; ll1 Height 5 ft. 8 in. (172.72 cm); Pain 9/10; 12:33 BP 129 / 58; Pulse 68; Resp 23; Pulse Ox 98% on 2 lpm NC; zb 13:00 BP 113 / 64; Pulse 72; Resp 20; Pulse Ox 94% on 2 lpm NC; zb 14:00 BP 119 / 84; Pulse 71; Resp 20; Pulse Ox 93% on 2 lpm NC; zb 11:57 Body Mass Index 41.81 (124.74 kg, 172.72 cm) ll1 MDM: 12:[address] [facility] 14:43 Data reviewed: vital signs, nurses notes. Counseling: I had a detailed discussion with [facility] the patient and/or guardian regarding: the historical points, exam findings, and any diagnostic results supporting the discharge/admit diagnosis, radiology results, the need for outpatient follow up, to return to the emergency department if symptoms worsen or persist or if there are any questions or concerns that arise at home. ED course: Patient is alert and non toxic in appearance in the ED. CT shows 2 tib fracture. Will treat with narcotic pain medication. Patient given incentive spirometry. ED course: NARX score = 120. 05 12:43 Order name: CT Chest Wo Con; Complete Time: 13:44 [facility] 10/14 14:37 Order name: INCENTIVE SPIROMETRY [facility] Administered Medications: 12:30 Drug: [place] (HYDROcodone-acetaminophen) 10 mg-325 mg 1 tabs {Note: RASS +1.} Route: PO; zb 13:30 Follow up: Response: No adverse reaction; Pain is decreased; RASS: Alert and Calm (0) zb Disposition: 10/15 07:19 Co-signature as Attending Physician, Benton Reina MD I agree with the assessment and kassidy plan of care. Disposition: 10/14/20 14:47 Discharged to Home. Impression: Multiple fractures of ribs. - Condition is Stable. - Discharge Instructions: Rib Fracture, Incentive Spirometer. - Prescriptions for Tylenol- Codeine #3 300-30 mg Oral tablet - take 1 tablet by ORAL route every 4 hours as needed; 20 tablet. - Medication Reconciliation Form, Thank You Letter, Antibiotic Education, Prescription Opioid Use form. - Follow up: Private Physician; When: 2 - 3 days; Reason: Recheck today's complaints, Continuance of care, Re-evaluation by your physician. Signatures: Dispatcher [employer] EDBenton Krishnamurthy MD MD cha Mickail, Joel, PA PA jmm Lewis, Lynsay, RN RN ll1 Birgit Meier RN RN regb Corrections: (The following items were deleted from the chart) 10/14 15:09 14:47 10/14/2020 14:47 Discharged to Home. Impression: Multiple fractures of ribs. zb Condition is Stable. Forms are Medication Reconciliation Form, Thank You Letter, Antibiotic Education, Prescription Opioid Use. Follow up: Private Physician; When: 2 - 3 days; Reason: Recheck today's complaints, Continuance of care, Re-evaluation by your physician. feng
[2020-10-14 15:14] VITALS: TEMP 97.5
[2020-10-14 15:18] VITALS: BP 119/84; O2SAT 93
== END 2020-10-14 15:09 | disposition home or self-care (01) ==
LOC: ER 11:46
DX: S22.41XA Multiple fractures of ribs, right side, initial encounter for closed fracture (principal); W19.XXXA Unspecified fall, initial encounter; Y93.01 Activity, walking, marching and hiking; Z85.46 Personal history of malignant neoplasm of prostate; Z88.6 Allergy status to analgesic agent; Z88.8 Allergy status to other drugs, medicaments and biological substances; Z95.4 Presence of other heart-valve replacement; I10 Essential (primary) hypertension
CPT/HCPCS: 71250; 99284

== ENCOUNTER 2022-05-01 12:09 | Day surgery (SDC) | payer OTHER, BC ==
[2022-04-30 09:53] LABS: Absolute Lymphocytes (CBC) 0.4 K/uL (0.7-4.9); Hematocrit 38.1 % (39.6-49.0); Lymphocytes % 4.2 % (15.3-44.8); MCV 92.1 fL (80-100); MPV 8.5 fL (7.6-11.3); RBC Red Blood Cell Count 4.13 M/uL (4.33-5.43)
[2022-04-30 10:06] LABS: Protime INR 2.42
--- NOTE | 2022-04-30 10:18 | RAD REPORT ---
EXAM DESCRIPTION: RAD - Chest Pa And Lat (2 Views) - 04/30/2022 10:00 am CLINICAL HISTORY: PREOP Chest pain. COMPARISON: Chest Pa And Lat (2 Views) dated 03/07/2020; Chest Single View dated 08/15/2019; Chest Pa And Lat (2 Views) dated 05/26/2018; Chest Single View dated 01/14/2018 FINDINGS: Calcified pleural plaques are present bilaterally most compatible with prior asbestos expo sure. The lungs are grossly clear of acute infiltrate. The heart is moderately enlarged. Sternotomy w ires present.
--- NOTE | 2022-05-01 08:06 | EKG ---
Test Date: 2022-04-30 Test Time: 09:36:36 Dialysis Biomed Technician: LAURA MEASUREMENT RESULTS: Intervals: Rate: 82 AK: 260 QRSD: 118 QT: 388 QTc: 453 [place]: P: 66 AK: 260 QRS: -24 T: 267 INTERPRETIVE STATEMENTS: Sinus rhythm with sinus arrhythmia with 1st degree AV block Cannot rule out Anterior infarct, age undetermined Abnormal ECG Compared to ECG 08/15/2019 21:02:51 Sinus tachycardia no longer present Atrial premature complex(es) no longer present Right-axis deviation no longer present T-wave abnormality no longer present Possible ischemia no longer present Myocardial infarct finding still present Electronically Signed On 05-01-22 08:02:00 BALLER TENDER by Charlie Bernardo
[2022-05-01] MEDS ORDERED: NA CHLORIDE 0.9% 500 ML ONE ×2 (12:15→13:26)
[2022-05-01] MEDS ORDERED: HEPA 1000U/500MLS 2,000 UNIT/1,000 ML BAG IV ONE ×2 (13:22→13:25)
[2022-05-01] MEDS ORDERED: FENTANYL CITR 100 MCG/2 ML ONE (13:50)
[2022-05-01] MEDS ORDERED: ATROPINE SULF 1 MG/10 ML SYR IV ONE (13:51)
[2022-05-01] MEDS ORDERED: CLOPIDOGREL 75 MG TABLET ONE (13:51)
[2022-05-01] MEDS ORDERED: MIDAZOLAM HCL 2 MG/2 ML INJ ONE (13:51)
[2022-05-01] MEDS ORDERED: VERAPAMIL HCL 10 MG/4 ML VIAL IV ONE (13:51)
[2022-05-01] MEDS ORDERED: HEPARIN 5000 UNIT/ML 1 ML VIAL ONE (13:51)
[2022-05-01] MEDS ORDERED: HEPARIN 10,000 UNIT/10 ML VIAL IV ONE (13:51)
[2022-05-01] MEDS ORDERED: REGADENOSON 0.4 MG/5 ML SYR IV ONE (13:52)
[2022-05-01] MEDS ORDERED: FUROSEMIDE 20 MG/ 2ML VIAL ONE (13:52)
--- NOTE | 2022-05-01 16:13 | OP ---
Date of Procedure: 05/01/2022 Surgeon: PAUL STOCKTON Procedure Performed: Selective coronary angiogram. Indication: Symptoms suggestive of unstable angina. Access: Right radial artery 6-Grenadian closed with TR band. Complications: None. Bleeding: Less than 20 mL. Anesthesia: Total sedation time was none. Description Of Procedure: After risks, benefits, alternatives were explained, the patient agreed to procedure and signed informed consent. The patient was brought into the cardiac catheterization labo [facility], prepped and draped in the usual sterile fashion. Then, I accessed right radial artery using pediatric micropuncture kit and a 6-Grenadian Slender sheath. Did not get sedation due to low blood pre ssure at the beginning of the procedure. So, we took a 5-Grenadian [place] 4.0 catheter over the J-wire i nto the aortic root and engaged the left main and right coronary artery, took standard views and then removed the catheter and sheath and placed TR band with good hemostasis. Findings: 1.Left main; very large and normal. 2.LAD; has diffuse proximal to mid very long lesion ranging between 40% to 50% with SAM-3 flow. Di agonal branches have mild disease 20% to 30% in diagonal 1 and diagonal 2. 3.Left circumflex; large and dominant, proximal 40% and then the OM takes off and there is ostial 40 % stenosis and then the mid left circumflex has diffuse 40% to 50% stenosis and it is a dominant circ ulation. 4.RCA; there is a non-dominant circulation at large size artery. It does not supply the inferior wa ll. Has ostial 40% stenosis and then distal 60% stenosis and then luminal irregularities. Conclusion: Moderate coronary artery disease, unchanged comparing to the angiogram that was done in 2017. Recommendation: 1.Aggressive medical management. 2.Obtain a nuclear stress test to further evaluate the need to do a PCI. Could not do FFR today as the blood pressure was very low and the patient was hypoxic and wheezing. SR/MODL Voice ID: [id number] Report ID: [id number]
[2022-05-01 16:31] VITALS: BP 142/69; O2SAT 97
== END 2022-05-01 16:27 | disposition home or self-care (01) ==
LOC: CCL 12:09
PROVIDERS: ATTEND Internal Medicine
DX: I25.110 Atherosclerotic heart disease of native coronary artery with unstable angina pectoris (principal); I11.0 Hypertensive heart disease with heart failure; I50.21 Acute systolic (congestive) heart failure; I44.0 Atrioventricular block, first degree; I95.9 Hypotension, unspecified; R09.02 Hypoxemia; R06.2 Wheezing; I06.0 Rheumatic aortic stenosis; I65.23 Occlusion and stenosis of bilateral carotid arteries; J44.1 Chronic obstructive pulmonary disease with (acute) exacerbation; E11.9 Type 2 diabetes mellitus without complications; Z95.2 Presence of prosthetic heart valve; Z88.8 Allergy status to other drugs, medicaments and biological substances
CPT/HCPCS: 36415; 71046; 76937; 80048; 82947; 85025; 85610; 85730; 93005; 93454; C1893; J0461; J1644; J1940; J2250; J2785; J3010; J7040; Q9966